=== PATIENT | male | born 1965 | race Two or more races ===

== ENCOUNTER → 2021-10-16 10:34 | Outpatient (BNVA) | payer MEDICARE, MEDICAID, SELFPAY | PROVIDERS: PCP Internal Medicine; Visit Provider Nurse Practitioner Family | DX: R56.9 Unspecified convulsions (principal); R51.9 Headache, unspecified; G47.9 Sleep disorder, unspecified | CPT/HCPCS: 99202 ==

== ENCOUNTER → 2022-05-12 12:59 | Outpatient (BNVA) | payer OTHER, SELFPAY | PROVIDERS: PCP Internal Medicine; Visit Provider Nurse Practitioner Family | DX: R56.9 Unspecified convulsions (principal); G47.9 Sleep disorder, unspecified; R06.83 Snoring; R53.83 Other fatigue; R51.9 Headache, unspecified; Z79.899 Other long term (current) drug therapy | CPT/HCPCS: 99212 ==

== ENCOUNTER 2023-02-06 08:34 | Outpatient (AMB) | payer OTHER, SELFPAY ==
--- NOTE | 2023-02-06 08:56 | A.OFFVIS_ITS ---
Intake Vital Signs 02/06/23 09:05 Weight 145 lb 5 oz BP 96/72 Blood Pressure Location Lt brachial Position Sitting Pulse 880 H Pulse Source Pulse Oximeter Pulse Oximetry (%) 96 Oxygen Delivery Method Room Air Intake Visit Reasons: follow up-Confirmed Intake Note: Patient present for seizure follow up visit. Patient reports he has not had any seizures and is feeling well. He D/C the Melatonin due to leg cramps Home Health Aide Caregiver Required: No Accompanied by: Self / Same As Patient Allergies Penicillins Allergy (Mild, Verified 02/06/23 09:08) Unknown Medication List - Last Reconciled 02/06/23 by MINA Fox albuterol sulfate 90 mcg/actuation (Ventolin HFA) inhalation albuterol sulfate 2.5 mg inhalation Q4H PRN aspirin 81 mg PO DAILY levetiracetam 1,000 mg PO BID 30 days magnesium oxide 400 mg PO BEDTIME 30 days omeprazole 20 mg PO DAILY oxycodone mg PO riboflavin (vitamin B2) 400 mg PO DAILY 90 days simvastatin 20 mg PO BEDTIME sucralfate 1 g PO ONCE tamsulosin 0.4 mg PO DAILY tiotropium bromide 2.5 mcg/actuation (Spiriva Respimat) 2 puffs inhalation DAILY trazodone 100 mg PO BEDTIME HPI HPI Comments History of Present Illness Details 57-yr-old male presents for f/u visit. Pt denies any significant interval medical changes. Denies any interval seizure activity. Compliant w/ Keppra bid. Pt stopped Melatonin- was causing leg cramps, which resolved upon stopping the melatonin. Sleeping ok w/ Trazodone 100mg qhs and by wearing ear plugs at night. He had been having LLE burning pain and muscle twitching/tremor at night. Denies weakness, usual tremor. His PCP started him on something, but does not recall what exactly, but it has been very helpful. [facility] Medical History COPD (chronic obstructive pulmonary disease) Depression History of cancer metastatic to brain History of Helicobacter pylori infection Hx of cancer of lung Hx of testicular cancer Hyperlipidemia Surgical History History of orchiectomy Hx of removal of cyst Hx of hernia repair Family History Mother Heart disease Father Acute alcohol abuse Social History Household Members: Spouse Alcohol intake: former Patient Tobacco Use Status: Former Tobacco user Substance Use Type: Crack/Cocaine Review of Systems Const All systems reviewed & are unremarkable except as noted in HPI and below Physical Exam Vital Signs: Last Vital Signs Pulse 880 H 02/06/23 09:05 BP 96/72 02/06/23 09:05 Pulse Ox 96 02/06/23 09:05 Oxygen Delivery Method Room Air 02/06/23 09:05 Const General: cooperative and no acute distress Orientation/consciousness: patient oriented x3 HEENT Head: Yes normocephalic Resp Effort & Inspection: normal respiratory effort and able to speak in complete sentences Neuro General: patient oriented x3, gait normal and CN's II-XI intact bilaterally Cognition (Neuro): normal cognition Motor exam (neuro): 5/5 motor strength present throughout Psych Appearance: grossly normal Mental Status: mental status grossly normal Speech and movement: Normal speech and movement present Affect: normal affect Attitude: cooperative Thought process: Normal thought process present Thought content: Normal thought content present Insight: Good insight present (Psych) Judgement: Good judgement present (Psych) Assessment & Plan Assessment & Plan (1) Seizure: Code(s): R56.9 - Unspecified convulsions (2) Sleep difficulties: Code(s): G47.9 - Sleep disorder, unspecified Plan For seizure: Continue Levetiracetam to 1,000mg bid. ? For headache: Monitor. ? For sleep: Stopped Melatonin- caused leg cramps. Continue Trazodone 100mg qhs. Pt declined HST- will monitor. ? f/u in 12 months or sooner prn. Medications: Refilled levetiracetam 1,000 mg PO BID 30 days 60 tabs 6RF Coding Level of Care Code Est Pt Level 4 (03487) Diagnoses Seizure R56.9 Sleep difficulties G47.9
[2023-02-06 09:05] VITALS: BP 96/72; PULSE 880; O2SAT 96
== END 2023-02-06 09:39 | disposition home or self-care (01) ==
PROVIDERS: PCP Internal Medicine; Visit Provider Nurse Practitioner Family
DX: R56.9 Unspecified convulsions (principal); G47.9 Sleep disorder, unspecified
CPT/HCPCS: 99214

== ENCOUNTER → 2023-02-06 08:34 | Outpatient (BNVA) | payer OTHER, SELFPAY | PROVIDERS: PCP Internal Medicine; Visit Provider Nurse Practitioner Family | DX: G47.9 Sleep disorder, unspecified (principal); R56.9 Unspecified convulsions | CPT/HCPCS: 99212 ==

== ENCOUNTER 2024-02-01 11:27 | Outpatient (AMB) | payer OTHER, SELFPAY ==
--- NOTE | 2024-02-01 11:31 | A.OFFVIS_ITS ---
Vital Signs 02/01/24 11:32 Height 5 ft 7 in Weight 149 lb BMI 23.3 Intake Visit Reasons: 1yr follow up Intake Note: Patient presents for follow up Allergies Penicillins Allergy (Mild, Verified 02/01/24 11:33) Unknown Medication List - Last Reconciled 02/01/24 by MINA Fox albuterol sulfate 90 mcg/actuation (Ventolin HFA) inhalation albuterol sulfate 2.5 mg inhalation Q4H PRN aspirin 81 mg PO DAILY levetiracetam 1,000 mg PO BID 30 days magnesium oxide 400 mg PO BEDTIME 30 days omeprazole 20 mg PO DAILY oxycodone mg PO riboflavin (vitamin B2) 400 mg PO DAILY simvastatin 20 mg PO BEDTIME sucralfate 1 g PO ONCE tamsulosin 0.4 mg PO DAILY tiotropium bromide 2.5 mcg/actuation (Spiriva Respimat) 2 puffs inhalation DAILY trazodone 100 mg PO BEDTIME HPI Comments Details: 58-yr-old male presents for f/u visit of seizure and would like to discuss his sleep issues. Pt denies any significant interval medical changes. Denies any interval seizure activity. He states he has not been taking his Keppra- thought it was stopped by his PCP. Reviewed recent PCP notes through [facility]- PCP did not d/c his Keppra. States rarely has a mild headache. Sleeping ok w/ Trazodone- now reduced to 50mg qhs and by wearing ear plugs at night. However, he is now having BLE calf restlessness, pain, shakiness which starts in when he lays down. May have BLE leg cramps. This starts at rest and makes it difficult to sleep. Walking helps. Denies weakness, usual tremor, low back pain. He was taking ropinirole- which helped but he is no longer taking it but is not sure why. Previous trials- Melatonin- was causing leg cramps, which resolved upon stopping the melatonin. [facility] Latest Ref Rng & Units 01/29/2023 09/03/2023 White Blood Cell Count 4.8 - 10.8 x10-3/uL 7.9 6.6 RBC 4.5 - 5.5 x10-6/uL 4.8 5.1 Hemoglobin 13.5 - 17.5 g/dL 14.6 15.3 Hematocrit 42 - 54 % 44.1 46.1 MCV 79 - 98 fL 92.5 90.4 MEAN CORPUSCULAR HEMOGLOBIN 27 - 32 pg 30.6 30.0 MCHC 32 - 37 g/dL 33.1 33.2 RED CELL DISTRIBUTION WIDTH 11 - 15 % 13.2 13.4 Platelet Count 130 - 400 x10-3/uL 197 189 MPV 7 - 11 fL 11.8(H) 11.2(H) NRBC % AUTO <1 % 0.0 0.0 NEUTROPHILS % 59.6 58.2 LYMPHOCYTES % 29.3 31.2 MONO % % 9.7 8.7 EOSINOPHILS % 0.5 0.8 BASO % % 0.6 0.8 IMMATURE GRANULOCYTES % % 0.3 0.3 NRBC # AUTO <0.1 x10-3/uL 0.00 0.00 NEUT # 1.5 - 7.0 x10-3/uL 4.72 3.87 LYMPH # 1 - 5.0 x10-3/uL 2.32 2.07 MONO # 0.2 - 1.0 x10-3/uL 0.77 0.58 EOS # 0 - 0.5 x10-3/uL 0.04 0.05 BASO # 0 - 0.2 x10-3/uL 0.05 0.05 IMMATURE GRANULOCYTES # 0 - 0.03 x10-3/uL 0.02 0.02 GLUCOSE, PLASMA 70 - 100 mg/dL 95 115(H) Blood Urea Nitrogen 5 - 25 mg/dL 16 16 creatinine 0.7 - 1.3 mg/dL 0.98 0.98 GLOMERULAR FILTRATION RATE >60 89 88 NA (WB) 135 - 145 mEq/L 140 141 K 3.5 - 5.5 mmol/L 4.0 4.0 Chloride 96 - 110 mmol/L 107 107 CARBON DIOXIDE 21 - 32 mmol/L 28 28 ANION GAP 3 - 11 5 6 CALCIUM 8.5 - 10.5 mg/dL 8.7 9.0 PROTEIN, TOTAL 6.0 - 8.0 G/dL 7.0 7.0 Albumin 3.2 - 5.0 G/dL 4.0 3.9 Bilirubin, total 0.0 - 1.4 mg/dL 0.4 0.5 AST (SGOT) 10 - 42 U/L 21 17 ALT (SGPT) 10 - 60 U/L 21 21 Alk Phos 42 - 121 U/L 68 71 Cholesterol 0 - 200 mg/dL 198 171 TRIGLYCERIDES 0 - 150 mg/dL 62 99 HDL >40 mg/dL 65 64 LDL 0 - 100 mg/dL 121(H) 88 TC-HDLC RATIO 0 - 4.4 mg/dL 3.1 2.7 TSH 0.40 - 4.00 uIU/ml 1.64 ? IRON BINDING CAPACITY 250 - 450 ug/dL ? 293 IRON, TOTAL 50 - 160 ug/dL ? 103 % FE SATURATION 20 - 50 % ? 35 MAGNESIUM 1.9 - 2.6 mg/dL 2.0 2.0 VITAMIN B12 250 - 900 pg/mL 1826(H) ? FERRITIN 26 - 388 ng/mL ? 64 INTRINSIC FACTOR ANTIBODY Negative ? Negative PFSH Medical History Hyperlipidemia Depression History of cancer metastatic to brain History of Helicobacter pylori infection COPD (chronic obstructive pulmonary disease) Hx of cancer of lung Hx of testicular cancer Surgical History History of orchiectomy Hx of removal of cyst Hx of hernia repair Family History Mother Heart disease Father Acute alcohol abuse Social History Household Members: Spouse Alcohol intake: former Patient Tobacco Use Status: Former Tobacco user Substance Use Type: Crack/Cocaine Physical Exam Vital Signs: BMI result Body Mass Index 23.3 Const General: cooperative and no acute distress Orientation/consciousness: patient oriented x3 HEENT Head: Yes normocephalic Resp Effort & Inspection: normal respiratory effort and able to speak in complete sentences Neuro General: patient oriented x3, gait normal and CN's II-XI intact bilaterally Cognition (Neuro): normal cognition Gait exam (Neuro): Normal gait present Motor exam (neuro): 5/5 motor strength present throughout Deep tendon reflexes (DTR's): Right patellar reflex intensity grade: 2+ and Left patellar reflex intensity grade: 2+ Psych Appearance: grossly normal Mental Status: mental status grossly normal Speech and movement: Normal speech and movement present Affect: normal affect Attitude: cooperative Thought process: Normal thought process present Assessment & Plan Assessment & Plan (1) Seizure: Code(s): R56.9 - Unspecified convulsions Category: Medical (2) Sleep difficulties: Code(s): G47.9 - Sleep disorder, unspecified Category: Medical Plan For seizure: Resume Levetiracetam 1,000mg bid. ? For sleep and RLS s/s: Advised to stop Trazodone 50mg qhs, as this may exacerbate restless leg symptoms. Trial Gabapentin 100-300 mg at bedtime. Start Ferrous sulfate 325mg w/ Vit C 500mg po 3 x's week (Mon-Wed-Fri) in hopes this optimizes ferritin level, as in RLS ferritin goal is > 75-100. Check labs for other common etiologies. Pt previousl declined HST- will monitor. ZPrevious trials- Melatonin- caused leg cramps. Ropinirole- helped- unclear why it was stopped. For headache: Monitor. ? Will follow-up upon review of above and patient to follow-up in clinic in 6 months or sooner prn. Orders: Orders Complete Blood Count Auto Diff Today E55.9 - Vitamin D deficiency, unspecified, F32.A - Depression, unspecified, R25.2 - Cramp and spasm, R53.83 - Other fatigue, R79.0 - Abnormal level of blood mineral Comprehensive Met. Panel Today E55.9 - Vitamin D deficiency, unspecified, F32.A - Depression, unspecified, R25.2 - Cramp and spasm, R53.83 - Other fatigue, R79.0 - Abnormal level of blood mineral Hemoglobin A1c Today E55.9 - Vitamin D deficiency, unspecified, F32.A - Depression, unspecified, R25.2 - Cramp and spasm, R53.83 - Other fatigue, R79.0 - Abnormal level of blood mineral Vitamin B6 Today E55.9 - Vitamin D deficiency, unspecified, F32.A - Depression, unspecified, R25.2 - Cramp and spasm, R53.83 - Other fatigue, R79.0 - Abnormal level of blood mineral Magnesium Today E55.9 - Vitamin D deficiency, unspecified, F32.A - Depression, unspecified, R25.2 - Cramp and spasm, R53.83 - Other fatigue, R79.0 - Abnormal level of blood mineral Creatine Kinase Total Today E55.9 - Vitamin D deficiency, unspecified, F32.A - Depression, unspecified, R25.2 - Cramp and spasm, R53.83 - Other fatigue, R79.0 - Abnormal level of blood mineral Vitamin D 25-OH (D2 and D3) Today E55.9 - Vitamin D deficiency, unspecified, F32.A - Depression, unspecified, R25.2 - Cramp and spasm, R53.83 - Other fatigue, R79.0 - Abnormal level of blood mineral Vitamin B12 and Folate Today E55.9 - Vitamin D deficiency, unspecified, F32.A - Depression, unspecified, R25.2 - Cramp and spasm, R53.83 - Other fatigue, R79.0 - Abnormal level of blood mineral Folate Today E55.9 - Vitamin D deficiency, unspecified, F32.A - Depression, unspecified, R25.2 - Cramp and spasm, R53.83 - Other fatigue, R79.0 - Abnormal level of blood mineral TSH reflex Free T4 Today E55.9 - Vitamin D deficiency, unspecified, F32.A - Depression, unspecified, R25.2 - Cramp and spasm, R53.83 - Other fatigue, R79.0 - Abnormal level of blood mineral Medications: New ferrous sulfate 325 mg orally 3 x's per week (Thu-Thu-Thu); take w/ vit C 28 d ays 12 tabs 3RF ascorbate calcium (vitamin C) 500 mg orally 3 x's per week (Thu-Thu-Thu); 28 days 12 tabs 3RF gabapentin 100 - 300 mg (1 - 3 x 100 mg) PO BEDTIME 30 days 90 caps 3RF Changed From trazodone 100 mg PO BEDTIME To trazodone 50 mg PO BEDTIME Refilled levetiracetam 1,000 mg PO BID 30 days 60 tabs 12RF R56.9 - Unspecified convulsions Scribe Plan - Not visible on output: Reviewed possible medication side effects, including but not limited to drowsiness, dizziness. Coding Level of Care Code Est Pt Level 4 (98591) Diagnoses Seizure R56.9 Sleep difficulties G47.9
[2024-02-01 11:32] VITALS: BMI 23.3
== END 2024-02-01 12:10 | disposition home or self-care (01) ==
PROVIDERS: PCP Internal Medicine; Visit Provider Nurse Practitioner Family
DX: R56.9 Unspecified convulsions (principal); G47.9 Sleep disorder, unspecified
CPT/HCPCS: 99214

== ENCOUNTER → 2024-02-01 11:27 | Outpatient (BNVA) | payer OTHER, SELFPAY | PROVIDERS: PCP Internal Medicine; Visit Provider Nurse Practitioner Family | DX: R56.9 Unspecified convulsions (principal); G47.9 Sleep disorder, unspecified; E55.9 Vitamin D deficiency, unspecified; F32.A Depression, unspecified; R25.2 Cramp and spasm; R53.83 Other fatigue; R79.0 Abnormal level of blood mineral | CPT/HCPCS: 99212 ==

== ENCOUNTER 2024-02-03 09:50 | Outpatient (REF) | payer OTHER, SELFPAY ==
[2024-02-03 13:07] LABS: MANUAL DIFF FLAG NO
[2024-02-03 13:10] LABS: Basophils Percent Auto 0.6 % (0-2); Eosinophils Percent Auto 0.5 % (0-4); Hematocrit 42.7 % (42.0-52.0); Imm Gran Abs Auto 0.02 X10*3/uL (0.00-0.03); Imm Gran Pct Auto 0.3 % (0.0-0.4); Lymphocytes Percent Auto 32.5 % (20-40); Mean Corpuscular HGB Conc 35.1 g/dl (31.0-36.0); Mean Corpuscular Hemoglobin 31.1 pg (27.0-33.0); Mean Corpuscular Volume 88.6 fL (80.0-98.0); Mean Platelet Volume 11.3 fL (9.4-12.4); Monocytes Absolute Auto 0.7 X10*3/uL (0.1-1.2); Monocytes Percent Auto 11.2 % (2-11); Neutrophils Absolute Auto 3.4 x10*3/uL (2.0-8.3); Neutrophils Percent Auto 54.9 % (45-73); Platelet Count 176 X10*3/uL (160-400); Red Blood Count 4.82 X10*6/uL (4.60-5.80); Red Cell Distribution Width 13.3 % (11.0-16.0); White Blood Count 6.3 X10*3/uL (4.8-10.8)
[2024-02-03 13:18] LABS: Estimated Average Glucose 117 mg/dL; Hemoglobin A1C 145.2559 umol/L; Hemoglobin A1c % 5.7 % (<6.0)
[2024-02-03 14:04] LABS: Alanine Aminotransferase 19 U/L (0-40); Albumin Level 4.2 g/dL (3.5-5.0); Alkaline Phosphatase 58 U/L (39-117); Anion Gap 12 (12-20); Aspartate Amino Transferase 22 U/L (5-37); Bilirubin Total 0.5 mg/dL (0.0-1.0); Blood Urea Nitrogen 17 mg/dL (9-16); Carbon Dioxide 28 mmol/L (22-29); Chloride 106 mmol/L (96-108); Estimated Glomerular Filt Rate > 60; Glucose Random 104 mg/dL (60-115); Magnesium 1.9 mg/dL (1.6-2.6); Potassium 3.8 mmol/L (3.3-5.1); Sodium 142 mmol/L (135-145); Total Protein 6.7 g/dL (6.5-8.0)
[2024-02-03 14:50] LABS: Folate 13.4 ng/mL (> or = 4.0); Vitamin B12 1456 pg/mL (200-900)
[2024-02-07 16:59] LABS: Vitamin D 25-OH, D2 <4 ng/mL; Vitamin D 25-OH, D3 22 ng/mL; Vitamin D 25-OH, Total 22 ng/mL (30-100)
== END 2024-02-03 09:51 | disposition home or self-care (01) ==
LOC: HO.HKASLDS 09:50
PROVIDERS: Visit Provider Nurse Practitioner Family
DX: R53.83 Other fatigue (principal); R25.2 Cramp and spasm; R79.0 Abnormal level of blood mineral; F32.A Depression, unspecified; E55.9 Vitamin D deficiency, unspecified
CPT/HCPCS: 36415; 80053; 82306; 82550; 82607; 82746; 83036; 83735; 84207; 84443; 85025

== ENCOUNTER 2024-08-23 11:24 | Outpatient (AMB) | payer OTHER, SELFPAY ==
[2024-08-23 11:29] VITALS: BP 100/60; PULSE 98; O2SAT 95; BMI 23.5
--- NOTE | 2024-08-23 11:29 | A.OFFVIS_ITS ---
Vital Signs 08/23/24 11:29 Height 5 ft 7 in Weight 150 lb BMI 23.5 BP 100/60 Blood Pressure Location Rt brachial Position Sitting Pulse 98 Pulse Source Pulse Oximeter Pulse Oximetry (%) 95 Oxygen Delivery Method Room Air Intake Visit Reasons: Follow Up 6mo Intake Note: Patient presents 6 month follow up for seizures/sleep Warp Preparer Required: No Accompanied by: Self / Same As Patient Allergies Penicillins Allergy (Mild, Verified 08/23/24 11:34) Unknown Medication List - Last Reconciled 08/23/24 by MINA Fox albuterol sulfate 90 mcg/actuation (Ventolin HFA) inhalation albuterol sulfate 2.5 mg inhalation Q4H PRN ascorbate calcium (vitamin C) 500 mg orally 3 x's per week (Thu-Thu-Thu); 28 days aspirin 81 mg PO DAILY atorvastatin 20 mg PO BEDTIME cholecalciferol (vitamin D3) 25 mcg PO DAILY 30 days ferrous sulfate 325 mg orally 3 x's per week (Thu-Thu-Thu); take w/ vit C 28 days gabapentin 100 - 300 mg (1 - 3 x 100 mg) PO BEDTIME 30 days levetiracetam 1,000 mg PO BID 30 days magnesium oxide 400 mg PO BEDTIME 30 days omeprazole 20 mg PO DAILY oxycodone mg PO riboflavin (vitamin B2) 400 mg PO DAILY simvastatin 20 mg PO BEDTIME sucralfate 1 g PO ONCE tamsulosin 0.4 mg PO DAILY trazodone 50 mg PO BEDTIME HPI Comments Details: 58-yr-old male presents for f/u visit of seizure and would like to discuss his sleep issues. Pt reports cardiology (Dr. [facility]) recently started him on Atorvastatin 20mg qhs for mild HLD.. He is also being f/b GI s/p colonoscopy showing tubular adenomas, requiring co lonoscopy bleed surveillance every 3 years. Denies any interval seizure activity. He has resumed his Keppra- however he would prefer to take it as 500mg in am and 100mg qhs- as he thinks it may contribute to BLE soreness and twitching. Denies recent strong headaches, just an occasional mild headache. He did start the vit D and ferrous sulfate supplement- she is tolerating well Pt recently stopped the Trazodone, as it was not helping. He states he is now trying to sleep without medication. However he did start Gabapentin 100mg daily at bedtime. He states he is now sleeping at least a few hours a night. Denies daytime naps. He states his restless leg symptoms are a bit better. Has not needed to get out of bed and walk. Though again he does have BLE soreness and twitching at rest. Denies weakness, usual tremor, low back pain. Previous sleep/RLS trials: Ropinirole- which helped but he is no longer taking it but is not sure why. Melatonin- was causing leg cramps, which resolved upon stopping the melatonin. [facility] Medical History (Updated 08/23/24 @ 12:07 by MINA Fox) Vitamin D deficiency Hyperlipidemia Depression History of cancer metastatic to brain History of Helicobacter pylori infection COPD (chronic obstructive pulmonary disease) Hx of cancer of lung Hx of testicular cancer Surgical History History of orchiectomy Hx of removal of cyst Hx of hernia repair Family History Mother Heart disease Father Acute alcohol abuse Social History Household Members: Spouse Alcohol intake: former Patient Tobacco Use Status: Former Tobacco user Substance Use Type: Crack/Cocaine Physical Exam Vital Signs: Last Vital Signs Pulse 98 08/23/24 11:29 BP 100/60 08/23/24 11:29 Pulse Ox 95 08/23/24 11:29 Oxygen Delivery Method Room Air 08/23/24 11:29 BMI result Body Mass Index 23.5 Const General: cooperative and no acute distress Orientation/consciousness: patient oriented x3 HEENT Head: Yes normocephalic Resp Effort & Inspection: normal respiratory effort and able to speak in complete sentences Neuro General: patient oriented x3, gait normal and CN's II-XI intact bilaterally Cognition (Neuro): normal cognition Gait exam (Neuro): Normal gait present Motor exam (neuro): 5/5 motor strength present throughout Deep tendon reflexes (DTR's): Right patellar reflex intensity grade: 2+ and Left patellar reflex intensity grade: 2+ Psych Appearance: grossly normal Mental Status: mental status grossly normal Speech and movement: Normal speech and movement present Affect: normal affect Attitude: cooperative Thought process: Normal thought process present Results Reviewed Results Reviewed: From [facility]ology notes, dated 08/16/2024 Component Date Value Ref Range Status ? Ventricular Rate ECG 08/16/2024 82 BPM Prelimina ry ? Atrial Rate 08/16/2024 82 BPM Preliminary ? P-R Interval 08/16/2024 158 ms Preliminary ? QRS Duration 08/16/2024 78 ms Preliminary ? Q-T Interval 08/16/2024 374 ms Preliminary0 ? QTc 08/16/2024 436 ms Preliminary ? P Wave [place] 08/16/2024 57 degrees Prelimin meng ? R [place] 08/16/2024 8 degrees Prelimina ry ? T [place] 08/16/2024 46 degrees Prelimin meng ? ECG Interpretation 08/16/2024 ? ? Preliminary Value:Normal sinus rhythmSeptal infarct (cited on or before 16-AUG-2024)Abnormal ECGWhen compared with ECG of 04-FEB-2021 11:38,Questionable change in initial forces of Septal leads? Hospital Outpatient Visit on 07/21/2024 Component Date Value Ref Range Status ? Final Diagnosis 07/21/2024 ? ? Final Value:A. Descending colon polyp: Tubular adenoma?B. Colon, cecum polyps x2: Tubular adenomata?C. Sigmoid colon polyp:Tubular adenomaMargin is uninvolved ? ? Gross Description 07/21/2024 ? ? Final Value:A. Large Intestine, Left/Descending Colon, polyp:Labeled descending colon polyp . Received in formalin is a 0.6 cm irregular gonzales mucosal tissue fragment which is wrapped in paper and submitted in toto in one cassette, one piece, multiple levels on one slide.B. Large Intestine, Cecum, polyp x2:Labeled colon cecum polyp x 2 . Received in formalin are four irregular gonzales mucosal tissue fragments, each measuring approximately 0.2 cm in greatest dimension, which are wrapped in paper and submitted in toto one cassette, four pieces, multiple levels on one slide.C. Large Intestine, Sigmoid Colon, polyp:Labeled Sig colon polyp . Received in formalin is a 0.6 cm gonzales- pink mucosal polyp. The resection margin is inked black. The polyp is bisected. Also received in same container is an additional 0.3 cm pink-red mucosal tissue fragment. The specimen is wrapped in paper and entirely submitted one cassette, three pieces, multiple levels on one slide.LEONA? ? Disclaimer 07/21/2024 ? ? Final Value:Unless otherwise specified, all tissue is 10% NB formalin fixed and paraffin embedded.? Appointment on 07/14/2024 Component Date Value Ref Range Status ? Sodium 07/14/2024 139 133 - 145 mmol/L Final ? Potassium 07/14/2024 4.5 3.5 - 5.5 mmol/L Final ? Chloride 07/14/2024 108 96 - 110 mmol/L Final ? CO2 07/14/2024 25 21 - 32 mmol/L F inal ? Anion Gap 07/14/2024 6 3 - 11 Final ? Glucose 07/14/2024 90 70 - 100 mg/dL F inal ? BUN 07/14/2024 14 5 - 25 mg/dL Fin al ? Creatinine 07/14/2024 0.82 0.70 - 1.30 mg/d L Final ? eGFR 07/14/2024 100 >=60 mL/min/1.7 3m2 Final ? Calculation based on the?Chronic Kidney Disease Epidemiology Collaboration (CKD-EPI) equation refit?without adjustment for race. ? BUN/Creatinine Ratio 07/14/2024 17.1 ? Final ? Calcium 07/14/2024 9.1 8.5 - 10.5 mg/dL Final ? AST (SGOT) 07/14/2024 18 10 - 42 unit/L F inal ? ALT (SGPT) 07/14/2024 24 10 - 60 unit/L F inal ? Alkaline Phosphatase 07/14/2024 68 42 - 121 unit/L Final ? Total Protein 07/14/2024 7.2 6.0 - 8.0 g/dL F inal ? Albumin 07/14/2024 3.8 3.2 - 5.0 g/dL F inal ? Total Bilirubin 07/14/2024 0.4 0.0 - 1.4 mg/d L Final ? Cholesterol 07/14/2024 196 0 - 200 mg/dL Fi nal ? Triglycerides 07/14/2024 67 0 - 150 mg/dL Fi nal ? HDL 07/14/2024 73 >=40 mg/dL Final ? LDL Calculated 07/14/2024 110 (H) 0 - 100 mg/dL F inal ? VLDL Cholesterol Perfecto 07/14/2024 13.4 mg/dL Final ? Non HDL Chol. (LDL+VLDL) 07/14/2024 123 <145 mg/ dL Final ? Chol/HDL Ratio 07/14/2024 2.7 0.0 - 4.4 Final ? WBC 07/14/2024 7.7 4.8 - 10.8 K/mcL Final ? RBC 07/14/2024 4.80 4.50 - 5.50 M/mc L Final ? Hemoglobin 07/14/2024 14.6 13.5 - 17.5 g/dL Final ? Hematocrit 07/14/2024 44.2 42.0 - 54.0 % Fi nal ? MCV 07/14/2024 92.7 79.0 - 98.0 FL F inal ? MCH 07/14/2024 30.6 27.0 - 32.0 pcg Final ? MCHC 07/14/2024 33.0 32.0 - 37.0 g/dL Final ? RDW 07/14/2024 13.5 11.0 - 15.0 % Fi nal ? Platelets 07/14/2024 183 130 - 400 K/mcL Final ? MPV 07/14/2024 10.5 7.0 - 11.0 FL Fi nal ? NRBC 07/14/2024 0.0 <1.0 % Final ? NRBC Absolute 07/14/2024 0.00 <0.10 K/mcL Fi nal ? TSH 07/14/2024 1.31 0.40 - 4.00 mcIU /mL Final ? Hemoglobin A1C 07/14/2024 5.9 <6.5 % Final ? Mean Bld Glu Estim. 07/14/2024 123 mg/dL Final Assessment & Plan Assessment & Plan (1) Seizure: Code(s): R56.9 - Unspecified convulsions Category: Medical (2) Low serum ferritin level: Code(s): R79.0 - Abnormal level of blood mineral Category: Medical (3) Vitamin D deficiency: Code(s): E55.9 - Vitamin D deficiency, unspecified Category: Medical (4) Sleep difficulties: Code(s): G47.9 - Sleep disorder, unspecified Category: Medical Plan For seizure: Hold Levetiracetam 1,000mg bid. We will request levetiracetam ER 500 mg tab- 4 tabs daily at bedtime (alternatively he may trial 1 tab in a.m. and 3 tabs at bedtime) ? For fatigue, sleep and RLS s/s: Recheck serum iron studies, ferritin, magnesium, vitamin-D- lab slips given to patient- he may do these with his next scheduled lab orders. For now: * Continue vitamin-D supplement * Continue Gabapentin 100-300 mg at bedtime. * Continue Ferrous sulfate 325mg w/ Vit C 500mg po 3 x's week (Mon-Wed-Thu) in hopes this optimizes ferritin level, as in RLS ferritin goal is > 75-100. Pt previously declined HST- will monitor. Previous trials- Melatonin- caused leg cramps. Ropinirole- helped- unclear why it was stopped. For headache: Continue riboflavin 400 mg daily in morning. Continue magnesium 400 mg daily at bedtime ? Will follow-up upon review of above and patient to follow-up in clinic in 6 months or sooner prn. Orders: Orders Ferritin Today E55.9 - Vitamin D deficiency, unspecified, R25.2 - Cramp and spasm, R79.0 - Abnormal level of blood mineral IRON PROFILE Today D64.9 - Anemia, unspecified, E55.9 - Vitamin D deficiency, unspecified, R25.2 - Cramp and spasm, R79.0 - Abnormal level of blood mineral Vitamin D 25-OH (D2 and D3) Today E55.9 - Vitamin D deficiency, unspecified, R25.2 - Cramp and spasm, R79.0 - Abnormal level of blood mineral Magnesium Today E55.9 - Vitamin D deficiency, unspecified, R25.2 - Cramp and spasm, R79.0 - Abnormal level of blood mineral Medications: New levetiracetam ER 2,000 mg (4 x 500 mg) PO Q24H 30 days 120 tabs 6RF Changed From riboflavin (vitamin B2) 400 mg PO DAILY 90 tabs 6RF To riboflavin (vitamin B2) 400 mg PO DAILY 90 days 90 tabs 3RF From magnesium oxide may hold for loose stools 400 mg PO BEDTIME 30 days 30 tabs 6RF To magnesium oxide may hold for loose stools 400 mg PO BEDTIME 90 days 90 tabs 3RF Refilled gabapentin 100 - 300 mg (1 - 3 x 100 mg) PO BEDTIME 30 days 90 caps 6RF ascorbate calcium (vitamin C) 500 mg orally 3 x's per week (Thu-Thu-Thu); 28 days 12 tabs 3RF ferrous sulfate 325 mg orally 3 x's per week (Thu-Thu-Thu); take w/ vit C 28 days 12 tabs 3RF cholecalciferol (vitamin D3) 25 mcg PO DAILY 30 days 30 caps 6RF E55.9 - Vitamin D deficiency, unspecified Discontinued levetiracetam Discontinued Reason: Doctor's Order 1,000 mg PO BID 30 days 60 tabs 12RF R56.9 - Unspecified convulsions Coding Level of Care Code Est Pt Level 4 (66260) Diagnoses Seizure R56.9 Low serum ferritin level R79.0 Vitamin D deficiency E55.9 Sleep difficulties G47.9
--- OUTSIDE RECORDS SUMMARY | 2024-08-23 12:54 | XMS_ITS | Clinical Summary ---
Author Organization [facility] Address [address] [place] [address] Care Team Providers Care Ross Lift Operator Name Role Phone Janet Chaudhry MD Primary Care Provider [phone] Allergies Active Allergy Reactions Criticality Noted Date Comments Penicillins 09/18/2016 Medications Medication Sig Dispensed Refills Start Date End Date Status omeprazole (PRILOSEC) 20 MG capsule Take 1 capsule (20 mg total) by mouth as needed. 0 Active SPIRIVA RESPIMAT 2.5 MCG/ACT AERS INHALE 2 PUFFS PO QD AT THE SAME TIME EACH DAY 3 08/26/2017 Active INCRUSE ELLIPTA 62.5 MCG/INH AEPB INL 1 PUFF PO QD 3 06/17/2017 A ctive albuterol (PROVENTIL) (2.5 MG/3ML) 0.083% nebulizer solution INL 3 ML BY NEBULIZATION ROUTE TID 3 11/28/2017 Active ASPIRIN LOW DOSE 81 MG EC tablet TK 1 T PO D 3 11/24/2017 Active albuterol (PROVENTIL HFA;VENTOLIN HFA) 108 (90 Base) MCG/ACT inhaler Inhale 2 puffs into the lungs every 4 (four) hours as needed for wheezing. 0 Active atorvastatin (LIPITOR) tablet 20 mg Take 1 tablet (20 mg total) by mouth daily. 0 Active methylPREDNISolone (MEDROL) 4 MG tablet Take 1 tablet (4 mg total) by mouth daily. 0 Active traZODone (DESYREL) 50 MG tablet TAKE 1 TABLET(50 MG) BY MOUTH EVERY NIGHT AT BEDTIME 90 tablet 3 12/15/2023 Active oxyCODONE (ROXICODONE) 5 MG immediate release tabletIndications: Malignant neoplasm of upper lobe of right lung (HCC) Take 1 tablet (5 mg total) by mouth every 8 (eight) hours as needed for pain. 24 tablet 0 01/12/2024 Active Active Problems Problem Noted Date Diagnosed Date Malignant neoplasm of upper lobe of right lung 0 10/04/2016 Brain metastases 10/04/2016 Personal history of gastric ulcer 10/04/2016 Chronic bronchitis 06/06/2015 Hx of testicular cancer 06/05/2015 Overview: Overview: Diagnosis 01/1997 - Under went Right orchiectomy without chemotherapy or radiation Family History Medical History Relation Name Comments Alcohol abuse Father Heart attack Mother Relation Name Status Comments Father Mother Sister Social History Tobacco Use Types Packs/Day Years Used Date Smoking Tobacco: Former Cigarettes 2 Q uit: 12/12/2014 Smokeless Tobacco: Never Alcohol Use Standard Drinks/Week Comments No 0 (1 standard drink = 0.6 oz pur e alcohol) Sex and Gender Information Value Date Recorded Sex Assigned at Not on file Gender Identity Not on file Sexual Orientation Not on file Job Start Date Occupation Industry Not on file Not on file Not on file Last Filed Vital Signs Vital Sign Reading Time Taken Comments Blood Pressure 100/62 01/13/2024 11:20 AM EDT Pulse 81 01/13/2024 11:20 AM EDT Temperature 37.1 ??C (98.7 ??F) 01/13/2024 11:20 AM E DT Respiratory Rate - - Oxygen Saturation 100% 01/13/2024 11:20 AM EDT Inhaled Oxygen Concentration - - Weight 67.1 kg (148 lb) 01/13/2024 11:20 AM EDT Height 170.2 cm (5' 7 ) 06/23/2023 11:06 AM EDT Body Mass Index 23.18 06/23/2023 11:06 AM EDT Plan of Treatment Health Maintenance Due Date Last Done Comments Hepatitis C Screening 1965 Depression Screening 1975 Preventative Health Evaluation 1981 DTap / Tdap / Td (1 - Tdap) 1982 Colon Cancer Screening (Colonoscopy) 02/10/2008 Pneumococcal Vaccine (2 of 2 - PCV) 12/28/2018 12/28/2017 COVID-19 Vaccine (3 - Pfizer risk series) 09/22/2020 08/25/2020, 08/04/2020 Influenza Vaccine (#1) 2023 0, 12/02/2018, 12/25/2017, Additional history exists RSV Adult > 60+ Yrs or (1 - 1-dose 75+ series) 2038 Shingrix-Zoster Vaccine Completed 05/16/2019, 12/28 Hepatitis B Vaccines Aged Out No long er eligible based on patient's age to complete this topic RSV Ped < 20 months Aged Out No longe r eligible based on patient's age to complete this topic Care Teams Ross Lift Operator Relationship Specialty Start Date End Date Janet Chaudhry MD [address] [facility] [address] [place] [address] PCP - General Internal Medicine 05/12/16
== END 2024-08-23 12:13 | disposition home or self-care (01) ==
LOC: HO.HSMS 11:24
PROVIDERS: PCP Internal Medicine; Visit Provider Nurse Practitioner Family
DX: R56.9 Unspecified convulsions (principal); R79.0 Abnormal level of blood mineral; E55.9 Vitamin D deficiency, unspecified; G47.9 Sleep disorder, unspecified
CPT/HCPCS: 99214

== ENCOUNTER → 2024-08-23 11:24 | Outpatient (BNVA) | payer OTHER, SELFPAY | PROVIDERS: PCP Internal Medicine; Visit Provider Nurse Practitioner Family | DX: R56.9 Unspecified convulsions (principal); R79.0 Abnormal level of blood mineral; E55.9 Vitamin D deficiency, unspecified; G47.9 Sleep disorder, unspecified | CPT/HCPCS: 99212 ==

== ENCOUNTER 2024-08-24 09:50 | Outpatient (REF) | payer OTHER, SELFPAY ==
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
--- OUTSIDE RECORDS SUMMARY | 2024-08-24 10:34 | XMS_ITS | Clinical Summary ---
Author Organization [facility] Address [address] [place] [address] Care Team Providers Care Mult Au Matic Operator Name Role Phone Janet Chaudhry MD Primary Care Provider [phone] Allergies Active Allergy Reactions Criticality Noted Date [...] age to complete this topic Care Teams Mult Au Matic Operator Relationship Specialty Start Date End Date Janet Chaudhry MD 175 [facility] [address] [place] [address] PCP - General Internal Medicine 05/12/16
--- OUTSIDE RECORDS SUMMARY | 2024-08-24 10:34 | XMS_ITS | Clinical Summary ---
Author Organization [facility] Address [address] [place] [address] Phone Care Team Providers Care Trench Pipe Layer Name Role Phone Janet Chaudhry MD Primary Care Provider [phone] Allergies Active Allergy Reactions Criticality Noted Date Comments Penicillins 05/18/2015 Medications cyanocobalami n (VITAMIN B-12) 1,000 mcg tablet Take 1 tablet (1,000 mcg total) by mouth 1 (one) time each day. 02/11/20 24 Active levETIRAcetam XR (KEPPRA XR) 500 mg 24 hr tablet 02/09/20 24 Active traZODone (DESYREL) 50 mg tablet TAKE 1 TABLET BY MOUTH AT BEDTIME 12/16/19 24 Active albuterol 2.5 mg /3 mL (0.083 %) nebulizer solution Take 1 Vial by nebulization every 4 hours as needed for Wheezing for up to 180 days. 05/29/19 21 Active sucralfate (CARAFATE) 1 gram tablet Take 1 g by mouth 2 times daily. Active NEBULIZERS MISC 1 Units by Does not apply route every 4 hours as needed. Active ondansetron (ZOFRAN) 4 mg tablet Take 1 Tab by mouth every 8 hours as needed for Nausea. 11/24/19 20 Active albuterol HFA (Ventolin HFA) 90 mcg/actuation inhaler 09/25/19 19 Active FeroSuL 325 mg (65 mg iron) tablet TAKE 1 TABLET BY MOUTH THREE TIMES A WEEK (MON-WED-FRI); TAKE WITH VITAMIN C TABLET. 12 tablet 3 05/25/19 25 Active polyethylene glycol (Golytely) 236-22.74-6.7 4 -5.86 gram solution Take 4L by mouth once for one dose. May substitue any PEG. Starting at 6PM the night before your procedure drink 1 8oz glasses at your own pace until you complete half of the gallon. Finish 2nd half of the gallon 5 hours before your procedure. 4000 mL 07/08/19 25 Active Additional Information Patient not taking.Reported on 08/16/2024 bisacodyL (DULCOLAX) 5 mg EC tablet Take 2 tablets by mouth right before beginning bowel prep. See instructions provided by the office 2 tablet 07/08/19 25 Active Additional Information Patient not taking.Reported on 08/16/2024 umeclidinium (INCRUSE ELLIPTA) 62.5 mcg/actuation inhalation INL 1 PUFF PO QD 06/18/19 18 Active rOPINIRole (REQUIP) 0.5 mg tablet 10/29/19 24 Active riboflavin (VITAMIN B2) 400 mg tablet 04/05/20 24 Active methylPREDNIS olone (MEDROL) 4 mg tablet Take 1 tablet (4 mg total) by mouth. Active LORazepam (ATIVAN) 0.5 mg tablet Take 1 tablet (0.5 mg total) by mouth. Active docusate sodium (COLACE) 100 mg capsule Take 1 capsule (100 mg total) by mouth. 11/18/19 19 Active Vitamin D3 25 mcg (1,000 unit) capsule 06/22/19 25 Active Vitamin C 500 mg tablet 06/14/19 25 Active acetaminophen (TYLENOL) 500 mg tablet Take 1 tablet (500 mg total) by mouth. 11/18/19 19 Active metoprolol succinate (TOPROL-XL) 25 mg 24 hr tablet Take 0.5 tablets (12.5 mg total) by mouth 1 (one) time each day. 45 tablet 2 07/15/19 25 Active gabapentin (NEURONTIN) 100 mg capsule TAKE 1 CAPSULE BY MOUTH THREE TIMES DAILY 90 capsule 1 07/15/19 25 Active simvastatin (ZOCOR) 20 mg tablet Take 1 tablet (20 mg total) by mouth at bedtime. 90 tablet 3 07/20/19 25 Active aspirin 81 mg EC tablet TAKE 1 TABLET BY MOUTH EVERY DAY 90 tablet 07/21/19 25 Active oxyCODONE (ROXICODONE) 5 mg immediate release tablet Take 1 tablet (5 mg total) by mouth every 8 (eight) hours if needed for severe pain. Max Daily Amount: 15 mg 24 tablet 07/23/19 25 Active omeprazole (PriLOSEC) [address] capsule TAKE 1 CAPSULE BY MOUTH EVERY DAY 90 capsule 1 07/28/19 25 Active Additional Information Patient not taking.Reported on 08/16/2024 atorvastatin (LIPITOR) 20 mg tablet Take 1 tablet (20 mg total) by mouth at bedtime. 90 each 3 08/17/19 25 026 Active omeprazole (PriLOSEC) [address] capsule Take 1 capsule (20 mg total) by mouth 1 (one) time each day. 09/02/19 24 025 Discontinued atorvastatin (LIPITOR) 20 mg tablet Take 1 tablet (20 mg total) by mouth 1 (one) time each day. 025 Discontinued(R eorder) Active Problems Problem Noted Date Diagnosed Date Chest wall pain 06/25/2023 Overview (03/28/2024): Last Assessment & Plan: The patient has chest wall pain that is tender to palpation in the exact region where he states he feels a pop while doing push-ups. He was advised to follow-up with his PCP regarding this. Given that he does not have any chest pain with exertion, this does not appear to be cardiac in nature; he was given reassurance regarding this. HIRAM (obstructive sleep apnea) 06/25/2023 Overview (03/28/2024): Last Assessment & Plan: The patient does appear to have a history of untreated HIRAM; we had an in-depth discussion regarding potential negative implications of this for his health, particularly for his cardiac health. Given that he is having some palpitations there is also concern for paroxysmal atrial fibrillation which we discussed as well. 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 Palpitations 06/25/2023 Overview (03/28/2024): Last Assessment & Plan: We will evaluate this further with 48-hour Holter monitor and readdress as needed. EKG today shows no ectopy; heart rate is well-controlled. Restless legs 01/30/2023 Chronic systolic congestive heart failure ([facility] V24, [facility] V28) 01/29/2023 Cardiomyopathy ([facility] V24, [facility] V28) 2021 Overview (03/28/2024): Last Assessment & Plan: Patient offers no ischemic or heart failure symptoms today; he appears euvolemic on exam. His last echocardiogram was completed in 2021 revealing an EF in the range of 40 to 45% which is typically been unchanged over the last several years. We will update this today and readdress as needed. Continue goal-directed medical therapies for heart failure including metoprolol; he does have a history of low systolic blood pressures and may not tolerate additional medications that would lower his blood pressure. Plan would be to initiate Farxiga or Jardiance if indicated. I've asked the patient to call if they develop worsening symptoms of heart failure such as increased shortness of breath, new or worsening cough, increased swelling in the legs or ankles, or weight gain of more than 2 pounds in one day or 4 pounds in one week. Tachycardia 11/04/2021 Seizure ([facility] V24, [facility] V28) 02/23/2021 Mixed hyperlipidemia 05/22/2020 Overview (03/28/2024): Last Assessment & Plan: The patient's most recent lipid panel reveals an LDL of 121 on 01/29/2023. Goal LDL for this patient would be less than 100 given he has no history significant for coronary artery disease no diabetes. Continue statin; lipid panel typically monitored by PCP. I have reviewed with the patient the importance of a heart healthy lifestyle which includes eating a low-fat low-salt diet, getting regular exercise, maintaining a healthy weight, not smoking, and following up with routine medical care. Pulmonary emphysema ([facility] V24, [facility] V28) 0 05/22/2020 Overview (03/28/2024): Last Assessment & Plan: No significant shortness of breath at rest or with exertion though he does have faint end expiratory wheezes; he does admit that these are worse at times. He will continue to follow-up with pulmonology as recommended. Vitamin D deficiency 11/20/2017 Chronic obstructive pulmonar y disease (COPD) ([facility] V24, [facility] V28) 11/11/2017 Insomnia 11/05/2017 Ejection fraction < 50% 08/21/2017 Overview (03/28/2024): Last Assessment & Plan: Appears euvolemic, has no ischemic or heart failure symptoms. I will update an echocardiogram. Internal and external prolapsed hemorrhoids 11/2017 Depression 04/14/2017 Colon polyps 03/27/2017 Atrophic gastritis 06/26/2016 Erosive esophagitis 06/26/2016 Anxiety about health 06/06/2015 Marijuana use 06/06/2015 Encounters Date Type Department Care Team Description 08/16/2024 10:50 AM EDT Office Visit [facility] [address] [place] [address] Jr Marques MD Cardiomyopathy, unspecified type ([facility] V24, [facility] V28) (Primary Dx); Chronic obstructive pulmonary disease, unspecified COPD type ([facility] V24, [facility] V28); Tachycardia 07/25/2024 Telephone Gastroenterology - [address] [phone] Greg Bagley, [place] 07/25/2024 Telephone Gastroenterology - [address] [phone] Greg Chio [place] Results 07/21/2024 10:44 AM EDT Anesthesia Event [facility] Endoscopy [address] [place] [address] Philip Rojas DO 07/21/2024 10:18 AM EDT - 07/21/2024 11:59 PM EDT Hospital Encounter [facility] Endoscopy [address] [place] [address] Pradeep Somers MD Claudio, Raymund, CRNA Tubular adenoma Discharge Disposition: Home or Self Care 07/19/2024 Telephone Internal Medicine - [place] [address] [facility] [address] [place] [address] Janet Chaudhry MD 07/14/2024 9:45 AM EDT Office Visit Internal Medicine [facility] 175 [facility] [address] [place] [address] Janet Chaudhry MD Mixed hyperlipidemia (Primary Dx); Seizure ([facility] V24, [facility] V28); Vitamin D deficiency; Hyperglycemia; Chronic obstructive pulmonary disease, unspecified COPD type ([facility] V24, [facility] V28); Chronic systolic congestive heart failure ([facility] V24, [facility] V28) 07/01/2024 Telephone Internal Medicine [facility] [address] [facility] [address] [place] [address] Janet Chaudhry MD Hypotension from Last 3 Months Immunizations Name Administration Dates Next Due Zoster recombinant (Shingrix) 19yo and older 06/2019 Surgical History Surgery Date Site/Laterality Comments OTHER SURGICAL HISTORY Right PROCEDURE: HISTORY OTHER; COMMENT: orchiectomy OTHER SURGICAL HISTORY PROCEDURE: HISTORY OTHER; COMMENT: right craniotomy for tumor resection HERNIA REPAIR 11/17/2018 Left PROCEDURE: LAPAROSCOPY, INGUINAL HERNIA REPAIR; COMMENT: Dr. Callahan BRAIN SURGERY PROCEDURE:BRAIN SURGERY COLONOSCOPY PROCEDURE:COLONOSCOPY Medical History Medical History Date Comments Anxiety about health 06/06/2015 DX:Anxiety about health Atrophic gastritis 06/26/2016 DX:Atrophic g astritis Chronic obstructive pulmonar y disease (COPD) ([facility] V24, [facility] V28) 11/11/2017 DX:Chronic obstructi ve pulmonary disease (COPD) ([facility]) Colon polyps 03/27/2017 DX:Colon polyps Depression 04/14/2017 DX:Depression Ejection fraction < 50% 08/21/2017 DX:Eject ion fraction < 50% Erosive esophagitis 06/26/2016 DX:Erosive e sophagitis Former cigarette smoker 06/06/2015 DX:Forme r cigarette smoker; COMMENT: Overview: Quit 04/2015 History of cancer metastatic to brain 09/09/2016 DX:History of cancer metastatic to brain; COMMENT: R craniotomy for tumor resection , s/p Chemo and RT History of Helicobacter pylo ri infection 08/30/2015 DX:History of Helicobacter p ylori infection History of lung cancer 06/06/2015 DX:Histor y of lung cancer; COMMENT: Small cell carcinoma dx 05/2012, s/p chemo and RT, Dr Rivas Hx of testicular cancer 06/05/2015 DX:Hx of testicular cancer; COMMENT: Overview: Diagnosis 01/1997 - Under went Right orchiectomy without chemotherapy or radiation Insomnia 11/05/2017 DX:Insomnia Internal and external prolap sed hemorrhoids 05/21/2017 DX:Internal and external pro lapsed hemorrhoids Marijuana use 06/06/2015 DX:Marijuana use Vitamin D deficiency 11/20/2017 DX:Vitamin D deficiency Lung cancer ([facility] V24, [facility] V28) DX:Lung cancer (HCC) Brain cancer ([facility] V24, [facility] V28) DX:Brain cancer (HCC) Hypertension DX:Hypertension CHF (congestive heart failur e) ([facility] V24, [facility] V28) DX:CHF (congestive heart fa ilure) (HCC) Brain metastases 10/04/2016 DX:Brain metast ases Chronic obstructive pulmonar y disease (COPD) ([facility] V24, [facility] V28) 11/11/2017 Seizure ([facility] V24, [facility] V28) 02/23/2021 Family History Medical History Relation Name Comments Alcohol abuse Father CABG Mother Heart attack Mother Relation Name Status Comments Father Mother Sister Social History Tobacco Use Types Packs/Day Years Used Date Smoking Tobacco: Former Cigarettes Q uit: 12/12/2014 Smokeless Tobacco: Never Tobacco Cessation:Counseling Given: Not Answered Alcohol Use Standard Drinks/Week Comments No 0 (1 standard drink = 0.6 oz pur e alcohol) Interpersonal Safety Answer Date Record ed Physical Abuse 07/21/2024 Verbal Abuse 07/21/2024 Sex and Gender Information Value Date Recorded Sex Assigned at Not on file Legal Sex Male 11:47 PM EST Gender Identity Not on file Sexual Orientation Not on file Obstetrics History Last Filed Vital Signs Vital Sign Reading Time Taken Comments Blood Pressure 115/60 08/16/2024 10:36 AM EDT Pulse 82 08/16/2024 10:36 AM EDT Temperature 36.7 ??C (98 ??F) 07/21/2024 10:43 AM EDT Respiratory Rate 20 07/21/2024 11:27 AM EDT Oxygen Saturation 98% 08/16/2024 10:36 AM EDT Inhaled Oxygen Concentration - - Weight 67.1 kg (148 lb) 08/16/2024 10:36 AM EDT Height 170.2 cm (5' 7 ) 08/16/2024 10:36 AM EDT Body Mass Index 23.18 08/16/2024 10:36 AM EDT Plan of Treatment Upcoming Encounters Date Type Department Care Team (Late st Contact Info) Description 09/14/2024 11:15 AM EDT Office Visit [facility] Hematology Oncology [address] [place] [phone] Katelyn Flynn MD [address] [place] [address] 11/17/2024 9:30 AM EDT Ancillary Procedure [facility] [address] [facility] [address] [place] [phone] 11/24/2024 11:30 AM EDT Office Visit Internal Medicine - [place] [address] [facility] [address] [place] [phone] Janet Chaudhry MD [address] [phone] 03/13/2025 8:40 AM EST Office Visit [facility] [address] [facility] [address] [place] [phone] Lbua Duenas NP [address] [facility] [address] [place] [address] Health Maintenance Due Date Last Done Comments Depression Screening 03/20/2022 HIV Screening 03/20/2022 Hepatitis C Screening 03/20/2022 Lung Cancer Screening (Low Dose CT) 03/20/2022 Social Influencers of Health Screening 03/20/2022 Medicare Annual Wellness Visit 01/30/2024 01/29/2023 COVID-19 Vaccine (8 - Pfizer risk season) 2024 12/16/2023, 01/07/2023, 12/26/2021, Additional history exists Hypertension/CHF/CAD Annual BMP Blood Test 07/14/2025 07/14/2024, 09/03/2023, 09/03/2023 Cholesterol Screening (Lipid Panel) 07/14/2029 07/14/2024, 09/03/2023, 09/03/2023 DTaP,Tdap,and Td Vaccines (2 - Td or Tdap) 08/03/2033 08/04/2023 Colorectal Cancer Screening: Colonoscopy 07/21/2034 07/21/2024 Zoster Vaccines Completed 05/16/2019, 12/28/2017 Pneumococcal Vaccine: 50+ Years Completed 01/10/2022, 12/28/2017 Pneumococcal Vaccine: Pediatrics (0 to 5 Years) and At-Risk Patients (6 to 64 Years) Completed 01/10/2022, 12/28/2017 RSV Immunization Adult Patients Completed 04/16/2023 MMR Vaccines Aged Out 08/04/2023 No longer eligi ble based on patient's age to complete this topic Influenza Vaccine Completed 12/04/2023, , 01/10/2022, Additional history exists HIB Vaccines Aged Out No longer eligi ble based on patient's age to complete this topic HPV Vaccines Aged Out No longer eligi ble based on patient's age to complete this topic Hepatitis A Vaccines Aged Out No long er eligible based on patient's age to complete this topic Hepatitis B Vaccines Aged Out No long er eligible based on patient's age to complete this topic IPV Vaccines Aged Out No longer eligi ble based on patient's age to complete this topic Meningococcal ACWY Vaccine Aged Out N o longer eligible based on patient's age to complete this topic Meningococcal B Vaccine Aged Out No l onger eligible based on patient's age to complete this topic RSV Immunization Patients Under 20 months Aged Out No longer eligible based on patient's age to complete this topic Varicella Vaccines Aged Out No longer eligible based on patient's age to complete this topic Procedures Procedure Name Priority Date/Time Associated Diagnosis Comments ECG 12-LEAD Routine 08/16/2024 10:42 AM EDT Cardiomyopathy, unspecified type ([facility] V24, [facility] V28) COLONOSCOPY Routine 07/21/2024 11:06 AM EDT Tubular adenoma TISSUE EXAM Routine 07/21/2024 10:53 AM EDT Tubular adenoma HEMOGLOBIN A1C Routine 07/14/2024 11:13 AM EDT Hyperglycemia THYROID STIMULATING HORMONE Routine 07/14/2024 11:13 AM EDT Mixed hyperlipidemia Seizure (CMS/HCC V24, CMS/HCC V28) Vitamin D deficiency COMPLETE BLOOD COUNT Routine 07/14/2024 11:13 AM EDT Mixed hyperlipidemia Seizure (CMS/HCC V24, CMS/HCC V28) Vitamin D deficiency LIPID PANEL WITH REFLEX TO DIRECT LDL Routine 07/14/2024 11:13 AM EDT Mixed hyperlipidemia Seizure (CMS/HCC V24, CMS/HCC V28) Vitamin D deficiency COMPREHENSIVE METABOLIC PANEL Routine 07/14/2024 11:13 AM EDT Mixed hyperlipidemia Seizure (CMS/HCC V24, CMS/HCC V28) Vitamin D deficiency from Last 3 Months Results * ECG 12 lead (08/16/2024 10:42 AM EDT) Ventricular Rate ECG 82 BPM GEMUSE Atrial Rate 82 BPM GEMUSE P-R Interval 158 ms GEMUSE QRS Duration 78 ms GEMUSE Q-T Interval 374 ms GEMUSE QTc 436 ms GEMUSE P Wave [place] 57 degrees GEMUSE R [place] 8 degrees GEMUSE T [place] 46 degrees GEMUSE ECG Interpretation Normal sinus rhythm Septal infarct (cited on or before 16-AUG-2024 ) Abnormal ECG When compared with ECG of 04-FEB-2021 11:38, Questionabl e change in initial forces of Septal leads Confirmed by Jacob MARQUES, JR ([id number]) on 08/16/2024 11:22:48 AM GEMUSE 08/16/2024 10:4 2 AM EDT 08/16/2024 11:22 AM EDT us Jr Marques MD ECG ORDERABLES Final Result GEMUSE * COLONOSCOPY Anesthesia - MAC; [facility] ENDOSCOPY (07/21/2024 11:06 AM EDT) Anatomical Region Laterality Modality Endoscopy 07/21/2024 10:3 7 AM EDT Impressions 07/21/2024 11:06 AM EDT - One 11 mm polyp in the sigmoid colon, removed with a ? hot snare. Resected and retrieved. ? - One 6 mm polyp in the descending colon, removed with ? a cold snare. Resected and retrieved. ? - Two 5 to 6 mm polyps in the cecum, removed with a ? cold snare. Resected and retrieved. ? - The examination was otherwise normal on direct and ? retroflexion views. Recommendation: ?- Await pathology results. ? - Repeat colonoscopy in 3 years for surveillance. Narrative 07/21/2024 11:06 AM EDT [facility] GI Patient Name: Chet Tao Procedure Date: 07/21/2024 10:37 AM Date of : 1965 Age: 59 Room: ROOM 15 Gender: Male Note Status: Finalized Attending MD: Pradeep Somers MD, Procedure Date No Time: 07/21/2024 Procedure: ? Colonoscopy Indications: ? High risk colon cancer surveillance: Personal history ? of colonic polyps Providers: ? Pradeep Somers MD Referring MD: ?Kash Cantor MD Medicines: ? Propofol per Anesthesia Complications: ? No immediate complications. Estimated Blood Loss: ? Estimated blood loss: none. Procedure: ? Pre-Anesthesia Assessment: ? - ASA Grade Assessment: II - A patient with mild ? systemic disease. ? After I obtained informed consent, the scope was ? passed under direct vision. Throughout the procedure, ? the patient's blood pressure, pulse, and oxygen ? saturations were monitored continuously.The Olympus ? Pediatric Colonoscope was introduced through the anus ? and advanced to the cecum, identified by appendiceal ? orifice and ileocecal valve. The colonoscopy was ? performed without difficulty. The patient tolerated ? the procedure well. The quality of the bowel ? preparation was good. Findings: ?The perianal and digital rectal examinations were ? normal. ? An 11 mm polyp was found in the sigmoid colon. The ? polyp was pedunculated. The polyp was removed with a ? hot snare. Resection and retrieval were complete. ? A 6 mm polyp was found in the descending colon. The ? polyp was sessile. The polyp was removed with a cold ? snare. Resection and retrieval were complete. ? Two sessile polyps were found in the cecum. The polyps ? were 5 to 6 mm in size. These polyps were removed with ? a cold snare. Resection and retrieval were complete. ? The exam was otherwise without abnormality on direct ? and retroflexion views. Procedure Code(s): ? --- Professional --- ? 32587, Colonoscopy, flexible; with removal of ? tumor(s), polyp(s), or other lesion(s) by snare ? technique Diagnosis Code(s): ? --- Professional --- ? D12.5, Benign neoplasm of sigmoid colon ? Z86.010, Personal history of colonic polyps ? D12.4, Benign neoplasm of descending colon ? D12.0, Benign neoplasm of cecum CPT copyright 2020 [employer]. All rights reserved. The codes documented in this report are preliminary and upon custody assistant review may be revised to meet current compliance requirements. Pradeep Somers MD 07/21/2024 11:06:28 AM This report has been signed electronically.Pradeep Somers MD Number of Addenda: 0 Note Initiated On: 07/21/2024 10:37 AM Scope In: Scope Out: ? Endoscopy Department at [facility] - [address] [place] [address], ? [place] [address] Procedure Note Pradeep Somers MD - 07/21/2024 [facility] GI Patient Name: Chet Tao Procedure Date: 07/21/2024 10:37 AM Date of : 1965 Age: 59 Room: ROOM 15 Gender: Male Note Status: Finalized Attending MD: Pradeep Somers MD, Procedure Date No Time: 07/21/2024 Procedure: Colonoscopy Indications: High risk colon cancer surveillance: Personalhistory of colonic polyps Providers: Pradeep Somers MD Referring MD: Kash Cantor MD Medicines: Propofol per Anesthesia Complications: No immediate complications. Estimated Blood Loss: Estimated blood loss: none. Procedure: Pre-Anesthesia Assessment: - ASA Grade Assessment: II - A patient with mild systemic disease. After I obtained informed consent, the scope was passed under direct vision. Throughout theprocedure, the patient's blood pressure, pulse, and oxygen saturations were monitored continuously.The Olympus Pediatric Colonoscope was introduced through theanus and advanced to the cecum, identified byappendiceal orifice and ileocecal valve. The colonoscopy was performed without difficulty. The patient tolerated the procedure well. The quality of the bowel preparation was good. Findings: The perianal and digital rectal examinations were normal. An 11 mm polyp was found in the sigmoid colon. The polyp was pedunculated. The polyp was removed witha hot snare. Resection and retrieval were complete. A 6 mm polyp was found in the descending colon. The polyp was sessile. The polyp was removed with acold snare. Resection and retrieval were complete. Two sessile polyps were found in the cecum. Thepolyps were 5 to 6 mm in size. These polyps were removedwith a cold snare. Resection and retrieval werecomplete. The exam was otherwise without abnormality ondirect and retroflexion views. Procedure Code(s): --- Professional --- 71360, Colonoscopy, flexible; with removal of tumor(s), polyp(s), or other lesion(s) by snare technique Diagnosis Code(s): --- Professional --- D12.5, Benign neoplasm of sigmoid colon Z86.010, Personal history of colonic polyps D12.4, Benign neoplasm of descending colon D12.0, Benign neoplasm of cecum CPT copyright 2020 [employer]. All rights reserved. The codes documented in this report are preliminary and upon custody assistant reviewmay be revised to meet current compliance requirements. Pradeep Somers MD 07/21/2024 11:06:28 AM This report has been signed electronically.Pradeep Somers MD Number of Addenda: 0 Note Initiated On: 07/21/2024 10:37 AM Scope In: Scope Out: Endoscopy Department at [facility] - [address] [place] [phone] IMPRESSION: - One 11 mm polyp in the sigmoid colon, removed with a hot snare. Resected and retrieved. - One 6 mm polyp in the descending colon, removedwith a cold snare. Resected and retrieved. - Two 5 to 6 mm polyps in the cecum, removed with a cold snare. Resected and retrieved. - The examination was otherwise normal on directand retroflexion views. Recommendation: - Await pathology results. - Repeat colonoscopy in 3 years for surveillance. Kash Cantor MD GI~PROCEDURE ORDERABLES Final Re sult * Tissue exam (07/21/2024 10:53 AM EDT) Final Diagnosis A. Descending colon polyp: Tubular adenoma B. Colon, cecum polyps x2: Tubular adenomata C. Sigmoid colon polyp: Tubular adenoma Margin is uninvolved 07/22/2024 4:40 PM EDT [facility] Gross Description A. Large Intestine, Left/Descending Colon, polyp: Labeled descending colon polyp . Received in formalin is a 0.6 cm irregular gonzales mucosal tissue fragment which is wrapped in paper and submitted in toto in one cassette, one piece, multiple levels on one slide. B. Large Intestine, Cecum, polyp x2: Labeled colon cecum polyp x 2 . Received in formalin are four irregular gonzales mucosal tissue fragments, each measuring approximately 0.2 cm in greatest dimension, which are wrapped in paper and submitted in toto one cassette, four pieces, multiple levels on one slide. C. Large Intestine, Sigmoid Colon, polyp: Labeled Sig colon polyp . Received in formalin is a 0.6 cm gonzales-pink mucosal polyp. The resection margin is inked black. The polyp is bisected. Also received in same container is an additional 0.3 cm pink-red mucosal tissue fragment. The specimen is wrapped in paper and entirely submitted one cassette, three pieces, multiple levels on one slide. LEONA 07/22/2024 4:40 PM EDT [facility] Disclaimer Unless otherwise specified, all tissue is 10% NB formalin fixed and paraffin embedded. 07/22/2024 4:40 PM EDT [facility] Tissue Descending colon structure / Unknown 07/21/2024 10:53 AM EDT 07/21/2024 12:12 PM EDT Tissue specimen (specimen) Cecum structure / Unknown 07/21/2024 10:56 AM EDT 07/21/2024 12:12 PM EDT Tissue specimen (specimen) Sigmoid colon structure / Unknown 07/21/2024 11:01 AM EDT 07/21/2024 12:12 PM EDT us Pradeep Somers MD LAB PATHOLOGY ORDERABLES Fi nal Result Performing Organization Address City/[facility]/ZIP Co de Phone Number [facility] [address] [place] [address], [place] [phone] * (ABNORMAL) Lipid panel with reflex to direct LDL (07/14/2024 11:13 AM EDT) Cholesterol 196 0 - 200 mg/dL LAB CHEMISTRY METHOD 07/14/2024 1:11 PM EDT [facility] Triglycerides 67 0 - 150 mg/dL LAB CHEMISTRY METHOD 07/14/2024 1:11 PM EDT [facility] HDL 73 >=40 mg/dL LAB CHEMISTRY METHOD 07/14/2024 1:11 PM EDT [facility] LDL Calculated 110(H) 0 - 100 mg/dL LAB CHEMISTRY METHOD 07/14/2024 1:11 PM EDT [facility] VLDL Cholesterol Perfecto 13.4 mg/dL LAB CHEMISTRY METHOD 07/14/2024 1:11 PM EDT [facility] Non HDL Chol. (LDL+VLDL) 123 <145 mg/dL LAB CHEMISTRY METHOD 07/14/2024 1:11 PM EDT [facility] Chol/HDL Ratio 2.7 0.0 - 4.4 LAB CHEMISTRY METHOD 07/14/2024 1:11 PM EDT [facility] Blood Venous blood specimen / Unknown Venipuncture / Unknown 07/14/2024 11:13 AM EDT 07/14/2024 11:23 AM EDT us Janet Chaudhry MD LAB BLOOD ORDERABLES Final Res ult [facility] [address] [place] [address], [place] [phone] * Complete blood count (07/14/2024 11:13 AM EDT) [facility] WBC 7.7 4.8 - 10.8 K/mcL LAB HEMETOLOGY METHOD 07/14/2024 11:33 AM [facility] RBC 4.80 4.50 - 5.50 M/mcL LAB HEMETOLOGY METHOD 07/14/2024 11:33 AM [facility] Hemoglobin 14.6 13.5 - 17.5 g/dL LAB HEMETOLOGY METHOD 07/14/2024 11:33 AM [facility] Hematocrit 44.2 42.0 - 54.0 % LAB HEMETOLOGY METHOD 07/14/2024 11:33 AM [facility] MCV 92.7 79.0 - 98.0 FL LAB HEMETOLOGY METHOD 07/14/2024 11:33 AM [facility] MCH 30.6 27.0 - 32.0 pcg LAB HEMETOLOGY METHOD 07/14/2024 11:33 AM [facility] MCHC 33.0 32.0 - 37.0 g/dL LAB HEMETOLOGY METHOD 07/14/2024 11:33 AM [facility] RDW 13.5 11.0 - 15.0 % LAB HEMETOLOGY METHOD 07/14/2024 11:33 AM [facility] Platelets 183 130 - 400 K/mcL LAB HEMETOLOGY METHOD 07/14/2024 11:33 AM [facility] MPV 10.5 7.0 - 11.0 FL LAB HEMETOLOGY METHOD 07/14/2024 11:33 AM [facility] NRBC 0.0 <1.0 % LAB HEMETOLOGY METHOD 07/14/2024 11:33 AM [facility] NRBC Absolute 0.00 <0.10 K/[facility] LAB HEMETOLOGY METHOD 07/14/2024 11:33 AM EDT [facility] Blood Venous blood specimen / Unknown Venipuncture / Unknown 07/14/2024 11:13 AM EDT 07/14/2024 11:25 AM EDT Janet Chaudhry MD LAB BLOOD ORDERABLES Final Res ult Performing Organization Address City/[facility]/ZIP Co de Phone Number [facility] [address] [place] [address], [place] [phone] * Thyroid stimulating hormone (07/14/2024 11:13 AM EDT) Pathologist [facility] [place] TSH 1.31 0.40 - 4.00 mcIU/mL LAB CHEMISTRY METHOD 07/14/2024 3:08 PM EDT [facility] Blood Venous blood specimen / Unknown Venipuncture / Unknown 07/14/2024 11:13 AM EDT 07/14/2024 11:23 AM EDT us Janet Chaudhry MD LAB BLOOD ORDERABLES Final Res ult Performing Organization Address [facility] de Phone Number [facility] [address] [place] [address], * Hemoglobin A1c (07/14/2024 11:13 AM EDT) Pathologist [facility] [place] Hemoglobin A1C 5.9 <6.5 % LAB CHEMISTRY METHOD 07/14/2024 2:19 PM EDT [facility] Mean Bld Glu Estim. 123 mg/dL LAB CHEMISTRY METHOD 07/14/2024 2:19 PM EDT [facility] Blood Venous blood specimen / Unknown Venipuncture / Unknown 07/14/2024 11:13 AM EDT 07/14/2024 11:25 AM EDT Janet Chaudhry MD LAB BLOOD ORDERABLES Final Res ult [facility] [address] [place] [address], * Comprehensive metabolic panel (07/14/2024 11:13 AM EDT) Sodium 139 133 - 145 mmol/L LAB CHEMISTRY METHOD 07/14/2024 1:11 PM [facility] Potassium 4.5 3.5 - 5.5 mmol/L LAB CHEMISTRY METHOD 07/14/2024 1:11 PM [facility] Chloride 108 96 - 110 mmol/L LAB CHEMISTRY METHOD 07/14/2024 1:11 PM [facility] CO2 25 21 - 32 mmol/L LAB CHEMISTRY METHOD 07/14/2024 1:11 PM [facility] Anion Gap 6 3 - 11 LAB CHEMISTRY METHOD 07/14/2024 1:11 PM [facility] Glucose 90 70 - 100 mg/dL LAB CHEMISTRY METHOD 07/14/2024 1:11 PM [facility] BUN 14 5 - 25 mg/dL LAB CHEMISTRY METHOD 07/14/2024 1:11 PM [facility] Creatinine 0.82 0.70 - 1.30 mg/dL LAB CHEMISTRY METHOD 07/14/2024 1:11 PM [facility] eGFR 100 >=60 mL/min/1. 73m2 LAB CHEMISTRY METHOD 07/14/2024 1:11 PM [facility] Comment:Calculation based on the??Chronic Kidney Disease Epidemiology Collaboration (CKD-EPI) equation refit??without adjustment for race. BUN/Creatinine Ratio 17.1 LAB CHEMISTRY METHOD 07/14/2024 1:11 PM [facility] Calcium 9.1 8.5 - 10.5 mg/dL LAB CHEMISTRY METHOD 07/14/2024 1:11 PM EDT [facility] AST (SGOT) 18 10 - 42 unit/L LAB CHEMISTRY METHOD 07/14/2024 1:11 PM EDT [facility] ALT (SGPT) 24 10 - 60 unit/L LAB CHEMISTRY METHOD 07/14/2024 1:11 PM EDT [facility] Alkaline Phosphatase 68 42 - 121 unit/L LAB CHEMISTRY METHOD 07/14/2024 1:11 PM EDT [facility] Total Protein 7.2 6.0 - 8.0 g/dL LAB CHEMISTRY METHOD 07/14/2024 1:11 PM EDT [facility] Albumin 3.8 3.2 - 5.0 g/dL LAB CHEMISTRY METHOD 07/14/2024 1:11 PM EDT [facility] Total Bilirubin 0.4 0.0 - 1.4 mg/dL LAB CHEMISTRY METHOD 07/14/2024 1:11 PM EDT [facility] Blood Venous blood specimen / Unknown Venipuncture / Unknown 07/14/2024 11:13 AM EDT 07/14/2024 11:23 AM EDT us Janet Chaudhry MD LAB BLOOD ORDERABLES Final Res ult [facility] [address] [place] [address], from Last 3 Months Insurance [employer] Member Subscriber Plan / Payer (Ef fective 2023-Present) Name:Chet Tao Jr. Relation to Subscriber:Self Name:Chet Tao Jr. Payer ID:[id number] Group ID:[id number] Type:Not on file Address: [address] [place] [address] Care Teams Trench Pipe Layer Relationship Specialty Start Date End Date Janet Chaudhry MD [address] [facility] [address] [place] [address] PCP - General Internal Medicine 02/15/18
--- OUTSIDE RECORDS SUMMARY | 2024-08-24 10:35 | XMS_ITS | Encounter Summary ---
Author Organization [facility] Address [address] [place] [address] Care Team Providers Care Computer Trainer Name Role Phone Janet Chaudhry MD Primary Care Provider [phone] Encounter Details Date Type Department Care Team (Late st Contact Info) Description 01/13/2024 10:51 AM EDT Hospital Encounter TH HISTORIC ENCOUNTERS EASTERN CONVERSION ONLY Katelyn Flynn MD [address] [place] [id number] Social History Tobacco Use Types Packs/Day Years [...] HPI: Patient is a very pleasant 58-year-old [place]ic-speaking man, who diagnosed with locally advanced squamous [...] Patient with a history of more than [id number] smoking, diagnosed with squamous cell carcinoma ofright [...] LUNG 58-year-old gentleman who has history of 18-tiip-evnd smoking history, diagnosed with locally advanced squamous [...] Description 09/14/2024 11:15 AM EDT Office Visit [facility] Hematology Oncology [address] [place] [address] Katelyn Flynn MD [address] [place] [address] 11/17/2024 9:30 AM EDT Ancillary Procedure [facility] Cardiology [facility] [address] [facility] [address] [place] [address] 11/24/2024 11:30 AM EDT Office Visit Internal Medicine - [place] [address] [phone] Janet Chaudhry MD [address] [phone] 03/13/2025 8:40 AM EST Office Visit [facility] Cardiology [facility] [address] [facility] [address] [place] [phone] Luba Duenas NP [address] [facility] [address] [place] [address] documented as of this encounter Visit Diagnoses Not on filedocumented in this encounter Care Teams Computer Trainer Relationship Specialty Start Date End Date Janet Chaudhry MD [address] [phone] PCP - General Internal Medicine 02/15/18 documented as of this encounter
[2024-08-24 18:41] LABS: Iron 114 mcg/dL (45-160); Magnesium 1.9 mg/dL (1.6-2.6); Percent Iron Saturation 41 % (15-50); Total Iron Binding Capacity 276 mcg/dL (228-428); Unsaturated Iron Binding 162 ug/dL
[2024-08-24 18:55] LABS: Ferritin 106 ng/mL (20-250)
[2024-08-24 19:05] LABS: Folate 13.6 ng/mL (> or = 4.0)
[2024-08-29 01:44] LABS: Vitamin D 25-OH, D2 <4 ng/mL; Vitamin D 25-OH, D3 25 ng/mL; Vitamin D 25-OH, Total 25 ng/mL (30-100)
== END 2024-08-24 09:51 | disposition home or self-care (01) ==
LOC: HO.HKASLDS 09:50
PROVIDERS: Visit Provider Nurse Practitioner Family
DX: E55.9 Vitamin D deficiency, unspecified (principal); R53.83 Other fatigue; D64.9 Anemia, unspecified; F32.A Depression, unspecified; R25.2 Cramp and spasm; R79.0 Abnormal level of blood mineral
CPT/HCPCS: 36415; 82306; 82728; 82746; 83540; 83735

== ENCOUNTER 2025-02-20 10:01 | Outpatient (REF) | payer OTHER, SELFPAY ==
--- OUTSIDE RECORDS SUMMARY | 2024-01-13 09:51 | XMS_ITS | Encounter Summary ---
Author Organization [facility] Address [address] [place] [address] Care Team Providers Care Sample Selector Name Role Phone Janet Chaudhry MD Primary Care Provider [phone] Encounter Details Date Type Department Care Team (Late st Contact Info) Description 01/13/2024 10:51 AM EDT Hospital Encounter TH HISTORIC ENCOUNTERS EASTERN CONVERSION ONLY Katelyn Flynn MD [address] [place] [id number] Social History Tobacco Use Types Packs/Day Years Used Date Smoking Tobacco: Former Cigarettes Q uit: 12/12/2014 Passive Smoke Exposure: Past Smokeless Tobacco: Never Alcohol Use Standard Drinks/Week Comments No 0 (1 standard drink = 0.6 oz pur e alcohol) Interpersonal Safety Answer Date Record ed Physical Abuse Unrecognized value 07/21/2024 Verbal Abuse Unrecognized value 07/21/2024 Sex and Gender Information Value Date Recorded Sex Assigned at Not on file Legal Sex Male 11:47 PM EST Gender Identity Not on file Sexual Orientation Not on file documented as of this encounter Last Filed Vital Signs Vital Sign Reading Time Taken Comments Blood Pressure 100/62 01/13/2024 11:20 AM EDT Sitting Left arm Pulse 81 01/13/2024 11:20 AM EDT Temperature - - Respiratory Rate - - Oxygen Saturation - - Inhaled Oxygen Concentration - - Weight 67.1 kg (148 lb) 01/13/2024 11:2 0 AM EDT Height 170.2 cm (5' 7 ) 06/23/2023 11:0 6 AM EDT Body Mass Index 23.18 11/11/2023 11:37 AM EDT documented in this encounter Progress Notes * Katelyn Flynn MD - 01/13/2024 11:15 AM EDT CHIEF COMPLAINT: Follow-up IDENTIFIER:Chet Tao Jr. is a 58 y.o. male. 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, patient also had oligometastatic disease in the brain, patient was treated with concurrent chemoradiation for the right lung with a very good response as well as brain lesion with radiation, patient has been on surveillance, patient had no signs symptoms suggestive of recurrence of his disease ROS: No anorexia or weight loss No chest pain shortness of breath except on exertion sometimes Minimal cough sometimes No hemoptysis No significant GI symptom except last week had couple days of abdominal cramps/pain which resolved Occasionally has some memory issues otherwise no issues neurologically Oncology History Overview Note Patient with a history of more than 92-evzv-sxpm smoking, diagnosed with squamous cell carcinoma ofright upper lung in Apr 2015, when he presented with worsening respiratory symptom Patient was seen by Dr. Rivas, patient had palliative radiation to the chest followed by 6 cycle of carboplatin with Abraxane, completed in September 2015 with very good response After completion of treatment had solitary brain metastases, treated with stereotactic radiation with a good response Patient has been on surveillance without any cytotoxic intervention for more than 2 years, most recent CT was in August [address] scan of chest on 12/28/2018 showed no significant change very stable post treatment sequela Patient developed some worsening respiratory symptom in April 2019 so I did a CT scan of chest on05/10/2019, that showed stable post treatment changes, no evidence of recurrence Patient follow-up CT scan on 10/31/2019 showed posttreatment changes involving the right hemithorax slightly less confluent compared to prior study otherwise no significant change and no new metastatic disease Patient has another follow-up CT scan in April 2020, that showed stable post therapy sequelae in the right lung, no evidence of any adenopathy or any metastatic disease Patient in early July 2020 diagnosed with COVID-19 infection, had significant respiratory distresslast for few weeks Patient CT scan of chest on 02/21/2021 showed stable treatment sequelae in the right hemithorax, nosuspicious pulmonary nodule or adenopathy Patient in early 2021 presented to hospital with seizures and is started on Keppra (there was no evidence of metastatic disease in the brain) CT scan in December 2021 again showed stable right hemithorax with treatment sequelae but there kirsten 0.4x 1.2 cm soft tissue nodule in posterior left hemithorax pleural surface, nonspecific, per radiology follow-up with a scan Underwent PET CT scan in March 2022 that showed nonspecific new left pleural process which cannot be confirmed on current PET CT scan, recommendation was to have follow-up CT of the chest Patient underwent follow-up CT scan of chest in June 2022 that showed posttreatment sequelae within the right hemithorax similar to prior studies, no evidence of thoracic lymphadenopathy or new/enlarging pulmonary nodule PAST MEDICAL HISTORY: Patient Active Problem List Diagnosis SNOMED CT(R) ??? Malignant neoplasm of upper lobe of right lung (HCC) MALIGNANT NEOPLASM OF RIGHT UPPER LOBE OF LUNG ??? Brain metastases METASTATIC MALIGNANT NEOPLASM TO BRAIN ??? Personal history of gastric ulcer H/O: GASTRIC ULCER ??? Hx of testicular cancer HISTORY OF MALIGNANT NEOPLASM OF TESTIS ??? Chronic bronchitis (HCC) CHRONIC BRONCHITIS Past Medical History: Diagnosis Date ??? Brain cancer (HCC) ??? Brain metastases 10/04/2016 ??? CHF (congestive heart failure) (HCC) ??? Hypertension ??? Lung cancer (HCC) SOCIAL HISTORY: Social History Tobacco Use ??? Smoking status: Former Packs/day: 2 Types: Cigarettes Quit date: 12/12/2014 Years since quittin.0 ??? Smokeless tobacco: Never Substance Use Topics ??? Alcohol use: No FAMILY HISTORY: Family History Problem Relation Age of Onset ??? Heart attack Mother ??? Alcohol abuse Father Family Status Relation Name Status ??? Mother ??? Father ??? Sister Current Outpatient Medications: ??? albuterol (PROVENTIL HFA;VENTOLIN HFA) 108 (90 Base) MCG/ACT inhaler, Inhale 2 puffs into the lungs every 4 (four) hours as needed for wheezing., Disp: , Rfl: ??? albuterol (PROVENTIL) (2.5 MG/3ML) 0.083% nebulizer solution, INL 3 ML BY NEBULIZATION ROUTE TID, Disp: , Rfl: 3 ??? ASPIRIN LOW DOSE 81 MG EC tablet, TK 1 T PO D, Disp: , Rfl: 3 ??? atorvastatin (LIPITOR) tablet 20 mg, Take 1 tablet (20 mg total) by mouth daily., Disp: , Rfl: ??? INCRUSE ELLIPTA 62.5 MCG/INH AEPB, INL 1 PUFF PO QD, Disp: , Rfl: 3 ??? methylPREDNISolone (MEDROL) 4 MG tablet, Take 1 tablet (4 mg total) by mouth daily., Disp: , Rfl: ??? omeprazole (PRILOSEC) 20 MG capsule, Take 1 capsule (20 mg total) by mouth as needed., Disp: , Rfl: ??? oxyCODONE (ROXICODONE) 5 MG immediate release tablet, Take 1 tablet (5 mg total) by mouth every8 (eight) hours as needed for pain., Disp: 24 tablet, Rfl: 0 ??? SPIRIVA RESPIMAT 2.5 MCG/ACT AERS, INHALE 2 PUFFS PO QD AT THE SAME TIME EACH DAY, Disp: , Rfl:3 ??? traZODone (DESYREL) 50 MG tablet, TAKE 1 TABLET(50 MG) BY MOUTH EVERY NIGHT AT BEDTIME, Disp: 90 tablet, Rfl: 3 You are allergic to the following Date Reviewed: 01/13/2024 Allergen Reactions Penicillins Not Noted PHYSICAL EXAM: BP 100/62 (BP Location: Left arm) Pulse 81 Temp 98.7 ??F (37.1 ??C) (Temporal) Wt 67.1 kg (148 lb) SpO2 100% BMI 23.18 kg/m?? ECOG 0 APPEARANCE: Alert and oriented in no acute distress EYES: nonicteric sclera pink conjunctiva ORAL CAVITY: No erythema or exudates NECK: Neck supple, no cervical and supraclavicular adenopathy, HEART: normal S1 and S2 LUNG: clear to auscultation bilaterally LYMPH NODES: No palpable superficial adenopathy ABDOMEN: soft, nontender and no organomegaly appreciated EXTREMITIES: No edema erythema tenderness IMPRESSION: SNOMED CT(R) 1. Malignant neoplasm of upper lobe of right lung (HCC) MALIGNANT NEOPLASM OF RIGHT UPPER LOBE OF LUNG 58-year-old gentleman who has history of 26-sqvf-dnmn smoking history, diagnosed with locally advanced squamous cell carcinoma of right lung, treated with concurrent chemoradiation, patient also had oligometastatic brain lesion treated with radiation, patient responded to treatment very well and has no signs symptom of recurrence since then Patient last CT scan was last year, we discussed about follow-up scan but exposure of unnecessary radiation etc., since his exam is unremarkable as well as he has no signs symptoms suggestive of recurrence decision made to continue to watch him without any intervention PLAN: Return to office next summer If develop any unusual symptoms, he can come earlier Katelyn Flynn MD documented in this encounter Plan of Treatment Upcoming Encounters Date Type Department Care Team (Late st Contact Info) Description 03/13/2025 8:40 AM EST Office Visit [facility] 102 300 [facility] 102 [place] [address] Luba Duenas NP [address] [place] [address] Dr Prince [address] [place] [address] 03/29/2025 1:30 PM EST Ancillary Procedure [facility] 101 300 [facility] 101 [place] [phone] 04/18/2025 9:45 AM EST Office Visit Pulmonology [facility] 175 [facility] 200 [place] [phone] Aleksey Ruth MD [address] [place] [phone] 06/14/2025 9:30 AM EST Office Visit [facility] Hematology Oncology [address] [place] [phone] Katelyn Flynn MD [address] [place] [address] documented as of this encounter Visit Diagnoses Not on filedocumented in this encounter Care Teams Sample Selector Relationship Specialty Start Date End Date Janet Chaudhry MD [address] [phone] PCP - General Internal Medicine 02/15/18 documented as of this encounter
--- OUTSIDE RECORDS SUMMARY | 2025-02-16 08:50 | XMS_ITS | Encounter Summary ---
Author Organization [facility] Address [address] [place] [address] Care Team Providers Care Incident Response Consultant Name Role Phone Janet Chaudhry MD Primary Care Provider [phone] Reason for Referral * Imaging (Routine) - Authorized Specialty Diagnoses / Procedures Referred By Contac t Referred To Contact Radiology Diagnoses Dysphagia, unspecified type Vomiting without nausea, unspecified vomiting type Procedures XR Barium Swallow with Video and Speech Janet Chaudhry MD [address] [address] Phone: tel: fax: [facility] CT Scan [address] [place] [address] Phone: tel: Referral ID Status Reason Start Date Expiration Date V isits Requested Visits Authorized [id number] Authorized 11/24/2024 11/24/2025 1 1 Reason for Visit * Imaging (Routine) - Authorized Specialty Diagnoses / Procedures Referred By Contac t Referred To Contact Radiology Diagnoses Dysphagia, unspecified type Vomiting without nausea, unspecified vomiting type Procedures XR Barium Swallow with Video and Speech Janet Chaudhry MD [address] [address] Phone: tel: fax: [facility] CT Scan [address] [place] [address] Phone: tel: Referral ID Status Reason Start Date Expiration Date V isits Requested Visits Authorized [id number] Authorized 11/24/2024 11/24/2025 1 1 Encounter Details Date Type Department Care Team (Latest Contact Info) Description 02/16/2025 8:50 AM EST - 02/16/2025 11:59 PM EST Hospital Encounter [facility] Xray [address] [place] [address] Evelyn Roach, HEADING SAW OPERATOR Dysphagia, unspecified type; Vomiting without nausea, unspecified vomiting type Discharge Disposition: Home or Self Care Social History Tobacco Use Types Packs/Day Years [...] on file documented as of this encounter Medications at Time of Discharge acetaminophen (TYLENOL) 500 mg tablet Take 1 tablet (500 mg total) by mouth. 9 albuterol 2.5 mg /3 mL (0.083 %) nebulizer solution Take 1 Vial by nebulization every 4 hours as needed for Wheezing for up to 180 days. 1 albuterol HFA (Ventolin HFA) 90 mcg/actuation inhalerIndications: Centrilobular emphysema (CMS/HCC V24, CMS/HCC V28) Inhale 2 puffs by mouth every 6 (six) hours if needed for wheezing. 6.7 g 11 5 aspirin 81 mg EC tablet TAKE 1 TABLET BY MOUTH EVERY DAY 90 tablet 5 atorvastatin (LIPITOR) 40 mg tablet Take 1 tablet (40 mg total) by mouth 1 (one) time each day. 90 each 1 5 budesonide-formoter oL (SYMBICORT) 160-4.5 mcg/actuation inhaler Inhale 2 puffs by mouth 2 (two) times a day. 1 each 11 5 cyanocobalamin (VITAMIN B-12) 1,000 mcg tablet TAKE 1 TABLET BY MOUTH EVERY DAY 90 tablet 5 docusate sodium (COLACE) 100 mg capsule Take 1 capsule (100 mg total) by mouth. 9 FeroSuL 325 mg (65 mg iron) tablet TAKE 1 TABLET BY MOUTH THREE TIMES A WEEK (MON-THU-THU); TAKE WITH VITAMIN C TABLET. 12 tablet 3 5 gabapentin (NEURONTIN) 100 mg capsule TAKE 1 CAPSULE BY MOUTH THREE TIMES DAILY 90 capsule 1 5 ibuprofen (ADVIL,MOTRIN) 600 mg tablet Take 1 tablet (600 mg total) by mouth 4 (four) times a day. 5 levETIRAcetam XR (KEPPRA XR) 500 mg 24 hr tablet 4 lisinopriL (PRINIVIL,ZESTRIL) 5 mg tabletIndications:D ilated cardiomyopathy (CMS/HCC V24, CMS/HCC V28) Take 1 tablet (5 mg total) by mouth 1 (one) time each day. 30 each 11 5 11/19/19 26 LORazepam (ATIVAN) 0.5 mg tablet Take 1 tablet (0.5 mg total) by mouth. metoprolol succinate (TOPROL-XL) 25 mg 24 hr tablet Take 0.5 tablets (12.5 mg total) by mouth 1 (one) time each day. 45 tablet 2 5 NEBULIZERS MISC 1 Units by Does not apply route every 4 hours as needed. omeprazole (PriLOSEC) [address] capsule TAKE 1 CAPSULE BY MOUTH EVERY DAY 90 capsule 5 oxyCODONE (ROXICODONE) 5 mg immediate release tabletIndications:R estless legs Take 1 tablet (5 mg total) by mouth every 8 (eight) hours if needed for severe pain. Max Daily Amount: 15 mg 24 tablet 5 riboflavin (VITAMIN B2) 400 mg tablet 4 rOPINIRole (REQUIP) 0.5 mg tablet 4 Spiriva Respimat 2.5 mcg/actuation inhalation spray Inhale 2 puffs by mouth 1 (one) time each day. 5 sucralfate (CARAFATE) 1 gram tablet Take 1 g by mouth 2 times daily. traZODone (DESYREL) 50 mg tablet TAKE 1 TABLET BY MOUTH AT BEDTIME 4 umeclidinium (INCRUSE ELLIPTA) 62.5 mcg/actuation inhalation Inhale 1 puff by mouth 1 (one) time each day. 1 each 11 5 Vitamin C 500 mg tablet 5 Vitamin D3 25 mcg (1,000 unit) capsule TAKE 1 CAPSULE BY MOUTH EVERY DAY 30 capsule 3 5 dapagliflozin propanediol (FARXIGA) 10 mg tablet Take 1 tablet (10 mg total) by mouth 1 (one) time each day. 30 each 5 02/21/20 25 documented as of this encounter Discharge Disposition Disposition Code Departure Means Destination Home or Self Care documented in this encounter Procedure Notes * Evelyn Huizar, HEADING SAW OPERATOR - 02/16/2025 9:45 AM EST Images from the original note were not included. Speech/Language Pathology OUTPATIENT MODIFIED BARIUM SWALLOW STUDY/ VIDEOFLUOROSCOPIC EVALUATION OF THE SWALLOW NAME: Chet Tao Jr. DATE OF : 1965 DATE: 02/16/2025 RECOMMENDATIONS: Recommendations/Treat Recommendations: Continued dysphagia therapy Solid Consistency: IDDSI Level 7 Regular Liquid Consistency: Thin liquids Liquid Administration Via: Cup, Syringe Recommended Medication Route: PO Recommended Medication Administration: (per patient preference) Supervision: Independent Compensations: Alternating liquids and solids, Slow rate, Small sips/bites Postural Changes and/or Swallow Maneuvers: Out of bed, Upright TREATMENT RECOMMENDATIONS: Patient would benefit from Outpatient HEADING SAW OPERATOR Services following this Instrumental Assessment Summary and Impressions: Chet Tao Jr. is a 60 y.o. who presents with Mild Oropharyngeal Dysphagia. Characterizations include decreased base of tongue retraction and decreased hyolaryngeal elevation/excursion causing vallecular and pyriform sinus residue. Patient had Partial duration and partial distention of the pharyngoesophageal segment resulted in partial obstruction of flow. Slow clearance noted below cricopharyngeus. Patient may benefit from further Esophageal testing for motility. Discussed results and recommendations with patient. Recommend Outpatient HEADING SAW OPERATOR for dysphagia tx. TIME IN: 0915 TIME OUT: 1000 MINUTES: 45 DEPUTY COMMONWE[employer]'S ATTORNEY REQUIRED: No GENERAL INFORMATION: Ordering Physician: Janet Chaudhry MD Radiologist: CHRISTIANO España Date of Onset: 11/24/24 Date of Order: 11/24/24 Date of Evaluation: 02/16/25 Type of Study: Initial MBS Reason for Study: Patient referred for MBS due to feeling like food is sticking around the lower throat region. Patient has dx COPD, h/o seizures, Lung Ca s/p Radiation and surgical removal of Brain tumor. No unintentional weight loss. Diet Prior to this Study: regular diet Dysphagia Diagnosis: (oropharyngeal dysphagia) SUBJECTIVE: Pleasant, ambulatory. Cognitive skills WNL to follow commands and provide history. Dysphagia, unspecified type [R13.10] Vomiting without nausea, unspecified vomiting type [R11.11] XR BARIUM SWALLOW WITH VIDEO AND SPEECH [[id number]] ALLERGIES: Allergies[1] OBJECTIVE Respiratory status: Room air DYSPHAGIA HISTORY/PREVIOUS MBSs none DYSPHAGIA SYMPTOMS REPORTED: Difficulty swallowing food and Food gets stuck MENTAL STATUS: Alert , Responsive, and Cooperative Oral/Motor: Oral Motor Comments: Oral motor skills WNL for speech/swallow tasks. Fluoroscopy View: Lateral Position during Eval: Standing CONSISTENCIES TRIALED FOOD: IDDSI Level 7 Regular and IDDSI Level 4 Puree LIQUID: IDDSI Level 3 Moderately Thick, IDDSI Level 2 Mildly Thick, and IDDSI Level 0 Thin BARIUM TABLET: whole with water Oral Phase: Oral Phase: Impaired Oral Phase - Comment: Premature spillage. Adequate oral transit and clearance. Pharyngeal Phase: Pharyngeal Phase: Impaired Pharyngeal Comment: Decreased base of tongue retraction and decreased hyolaryngeal elevation/excursion. Vallecular and pyriform sinus residue throughout study, cleared with sip of clear water. No laryngeal penetration and no tracheal aspiration. Cricopharyngeal/Esophageal Phase: Cricopharyngeal Phase: Impaired Cricopharyngeal Comment: Partial duration and partial distention of the pharyngoesophageal segment resulted in partial obstruction of flow and pyriform sinus residue. Slow clearance noted below Cricopharyngeus. Cricopharyngeal Comment: Partial duration and partial distention of the pharyngoesophageal segment resulted in partial obstruction of flow and pyriform sinus residue. Slow clearance noted below Cricopharyngeus. 8- Point Penetration Aspiration Scale (PAS) Consistency- (IDDSI level) Score Comments Moderate thick liquids (3) 1- Material does not enter airway. Mildly thick liquids (2) 1- Material does not enter airway. Thin liquids (0) 1- Material does not enter airway. Puree (4) 1- Material does not enter airway. Regular solids (7) 1- Material does not enter airway. Barium tablet 1- Material does not enter airway. Other: HANNA Ugarte, Arabella Mendieta, Jes MARKHAM, ARIEL Paiz, & ARIEL Leos. A Penetration- Aspiration Scale. Dysphagia 11:93-98, 1995. EDUCATION Education: Education provided: Reviewed MBS video Swallow strategies Recommended referral Applied Knowledge, Verbal Understanding, and Demonstrated Skills LANNY Nagel 02/16/2025 Please note that swallowing is a dynamic process and the skills reflected during this brief assessment may not necessarily represent the patient's swallowing function during an entire meal. Ongoing clinical judgment is strongly advised. [1] Allergies Allergen Reactions Penicillins documented in this encounter Plan of Treatment Upcoming Encounters Date Type Department Care Team (Late st Contact Info) Description 03/13/2025 8:40 AM EST Office Visit [facility] 102 [address] [facility] 102 [place] [address] Luba Duenas NP [address] [place] [address] [address] [place] [address] 03/29/2025 1:30 PM EST Ancillary Procedure [facility] 101 300 [facility] 101 [place] [address] 04/18/2025 9:45 AM EST Office Visit Pulmonology [facility] 175 [facility] 200 [place] [phone] Aleksey Ruth MD [address] [place] [phone] 06/14/2025 9:30 AM EST Office Visit [facility] Hematology Oncology [address] [place] [address] Katelyn Flynn MD [address] [place] [address] documented as of this encounter Procedures Procedure Name Priority Date/Time Associated Diagnosis Comments XR BARIUM SWALLOW WITH VIDEO AND SPEECH Routine 02/16/2025 9:22 AM EST Dysphagia, unspecified type Vomiting without nausea, unspecified vomiting type documented in this encounter Results * XR Barium Swallow with Video and Speech (02/16/2025 9:22 AM EST) Anatomical Region Laterality Modality Head and Neck Radiographic Kristyn ging 02/16/2025 11:4 0 AM EST Impressions 02/17/2025 5:16 PM EST Normal swallowing function. Please refer to the dedicated speech pathologist report for further details as clinically indicated. -------- FINAL REPORT -------- Dictated By: Arely Lamb Dictated Date: 02/16/2025 11:40 ET Assigned Physician: Jacob Cortes Reviewed and Electronically Signed By: Jacob Cortes Signed Date: 02/17/2025 17:16 ET Workstation ID: [id number] Transcribed By: Self Edit Transcribed Date: 02/16/2025 11:42 ET Resident/PA/WAREHOUSE SORTER: Arely Lamb Narrative 02/17/2025 5:16 PM EST STUDY: Modified barium swallow study COMPARISON: Modified barium swallow 2016 HISTORY: Dysphagia. Hx mets to brain, lung Ca TECHNIQUE: Multiple sequential fluoroscopic images of the lateral neck were obtained for a swallowing function study. Barium enhanced consistencies of pudding, honey, nectar, thin liquid, semi- solid, and a 13 mm barium tablet were utilized for evaluation. Examination was performed with the speech therapist present. FINDINGS: There was no evidence for penetration or aspiration of the various consistencies. 13mm barium tablet was swallowed without difficulty with prompt passage of pill past the hypopharynx DAP: 0.13 Gycm^2 Procedure Note Jacob Cortes MD - 02/17/2025 STUDY: Modified barium swallow study COMPARISON: Modified barium swallow 2016 HISTORY: Dysphagia. Hx mets to brain, lung Ca TECHNIQUE: Multiple sequential fluoroscopic images of the lateral neckwere obtained for a swallowing function study. Barium enhancedconsistencies of pudding, honey, nectar, thin liquid, semi-solid, and a 13mm barium tablet were utilized for evaluation. Examination was performedwith the speech therapist present. FINDINGS: There was no evidence for penetration or aspiration of the variousconsistencies. 13mm barium tablet was swallowed without difficulty withprompt passage of pill past the hypopharynx DAP: 0.13 Gycm^2 IMPRESSION: Normal swallowing function. Please refer to the dedicated speech pathologist report for furtherdetails as clinically indicated. -------- FINAL REPORT -------- Dictated By: Arely Lamb Dictated Date: 02/16/2025 11:40 ET Assigned Physician: Jacob Cortes Reviewed and Electronically Signed By: Jacob Cortes Signed Date: 02/17/2025 17:16 ET Workstation ID: [id number] Transcribed By: Self Edit Transcribed Date: 02/16/2025 11:42 ET Resident/PA/WAREHOUSE SORTER: Arely Lamb Janet Chaudhry MD IMG FLUOROSCOPY PROCEDURES Fin al Result documented in this encounter Visit Diagnoses Diagnosis Dysphagia, unspecified type Vomiting without nausea, unspecified vomiting type documented in this encounter Administered Medications Inactive Administered Medications - up to 3 most recent administrations Medication Order MAR Action Action Date Dose Rate Site barium sulfate (E-Z-DISK) tablet 700 mg 700 mg, oral, Once in imaging, Starting on Lindsay 02/16/25 at 0923, For 1 dose, Swallow whole with 1-2 swallows of water just prior to fluoroscopic examination. Given 02/16/2025 9:25 AM EST 700 mg barium sulfate (VARIBAR HONEY) 40 % (w/v) 29% (w/w) suspension 5 mL 5 mL, oral, Once in imaging, Starting on Lindsay 02/16/25 at 0923, For 1 dose Given 02/16/2025 9:25 AM EST 5 mL barium sulfate (VARIBAR NECTAR, TAGITOL V) 40 % (w/v) suspension 30 mL 30 mL, oral, Once in imaging, Starting on Lindsay 02/16/25 at 0923, For 1 dose Given 02/16/2025 9:25 AM EST 30 mL barium sulfate (VARIBAR PUDDING) 40 % (w/v), 30% (w/w) oral paste 5 mL 5 mL, oral, Once in imaging, Starting on Lindsay 02/16/25 at 0923, For 1 dose, Administer with oral syringe or spoon. Max cumulative dose of 30 mL. Discard any unused product 21 days after tube opened. Given 02/16/2025 9:24 AM EST 5 mL barium sulfate (VARIBAR THIN LIQUID) 40% (w/v), 81% (w/w) suspension 30 mL 30 mL, oral, Once in imaging, Starting on Lindsay 02/16/25 at 0924, For 1 dose Given 02/16/2025 9:24 AM EST 30 mL documented in this encounter Care Teams Incident Response Consultant Relationship Specialty Start Date End Date Janet Chaudhry MD [address] [place] [phone] PCP - General Internal Medicine 02/15/18 documented as of this encounter
--- OUTSIDE RECORDS SUMMARY | 2025-02-20 11:41 | XMS_ITS | Encounter Summary ---
Author Organization [facility] Address [address] [place] [address] Care Team Providers Care Housing Management Representative Name Role Phone Janet Chaudhry MD Primary Care Provider [phone] Encounter Details Date Type Department Care Team (Late Contact Info) Description 02/17/2025 Results Follow-Up Internal Medicine - [place] 175 [facility] [address] [place] [phone] Janet Chaudhry MD [address] [place] [phone] Social History Tobacco Use Types Packs/Day Years [...] Department Care Team (Late Contact Info) Description 03/13/2025 8:40 AM EST Office Visit [facility] - [facility] 102 300 [facility] 102 [place] [phone] Luba Duenas NP [address] [place] [address] [place] [address] 03/29/2025 1:30 PM EST Ancillary Procedure [facility] 101 300 [facility] 101 [place] [phone] 04/18/2025 9:45 AM EST Office Visit Pulmonology - [place] 175 [facility] 200 [place] [phone] Aleksey Ruth MD 230 [place] [phone] 06/14/2025 9:30 AM EST Office [facility] Hematology Oncology [address] [place] [phone] Katelyn Flynn MD [address] [place] [address] documented as of this encounter Visit Diagnoses Not on filedocumented in this encounter Care Teams Housing Management Representative Relationship Specialty Start Date End Date Janet Chaudhry MD [address] [phone] PCP - General Internal Medicine 02/15/18 documented as of this encounter
--- OUTSIDE RECORDS SUMMARY | 2025-02-20 11:41 | XMS_ITS | Encounter Summary ---
Author Organization [facility] Address [address] [place] [address] Care Team Providers Care Flake Or Shred Roll Operator Name Role Phone Janet Chaudhry MD Primary Care Provider [phone] Encounter Details Date Type Department Care Team (Late Contact Info) Description 02/07/2025 Lab Requisition [facility] - Main Lab 299 [facility] [place] [address] Robi Hinojosa PA [address] [place] [address] [place] [address] Elevated prostate specific antigen (PSA); Benign prostatic hyperplasia with lower urinary tract symptoms Social History Tobacco Use Types Packs/Day Years [...] Description 03/13/2025 8:40 AM EST Office Visit [facility] - [place] [address] [facility] [address] [place] [address] Luba Duenas NP [address] [place] [address] [address] [place] [address] 03/29/2025 1:30 PM EST Ancillary Procedure [facility] - [place] [facility] 101 [place] [address] 04/18/2025 9:45 AM EST Office Visit Pulmonology - [place] 175 [facility] [address] [place] [phone] Aleksey Ruth MD [address] [place] [address] 06/14/2025 9:30 AM EST Office Visit [facility] Hematology Oncology [address] [place] [phone] Katelyn Flynn MD [address] [place] [address] documented as of this encounter Procedures Procedure Name Priority Date/Time Associated Diagnosis Comments PROSTATE SPECIFIC ANTIGEN DIAGNOSTIC Routine 02/07/2025 11:13 AM EDT Elevated prostate specific antigen (PSA) Benign prostatic hyperplasia with lower urinary tract symptoms documented in this encounter Results * Prostate specific antigen diagnostic (02/07/2025 11:13 AM EDT) PSA 1.67 0.00 - 4.00 ng/mL LAB CHEMISTRY METHOD 02/07/2025 3:49 PM EDT [facility] Blood Venous blood specimen / Unknown 02/07/2025 11:13 AM EDT 02/07/2025 3:04 PM EDT Narrative [facility] - 02/07/2025 3:49 PM EDT The Siemens Advia Centaur Chemiluminescent Immunoassay is used. Results obtained with different assay methods or kits cannot be used interchangeably. Results cannot be interpreted as absolute evidence of the presence or absence of malignant disease. us Robi ALVARADO LAB BLOOD ORDERABLES Final Resul t [facility] [address] [place] [address], documented in this encounter Visit Diagnoses Diagnosis Elevated prostate specific antigen (PSA) Benign prostatic hyperplasia with lower urinary tract symptoms documented in this encounter Care Teams Flake Or Shred Roll Operator Relationship Specialty Start Date End Date Janet Chaudhry MD 175 [facility] 200 [place] [address] PCP - General Internal Medicine 02/15/18 documented as of this encounter
--- OUTSIDE RECORDS SUMMARY | 2025-02-20 11:41 | XMS_ITS | Clinical Summary ---
Author Organization [facility] Address [address] [place] [address] Phone Care Team Providers Care Furniture Dipper Name Role Phone Janet Chaudhry MD Primary Care Provider [phone] Allergies Active Allergy Reactions Criticality Noted Date Comments Penicillins 05/18/2015 Medications levETIRAcetam XR (KEPPRA XR) 500 mg 24 [...] route every 4 hours as needed. Active FeroSuL 325 mg (65 mg iron) tablet TAKE 1 TABLET BY MOUTH THREE TIMES A WEEK (MON-WED-FRI); TAKE WITH VITAMIN C TABLET. 12 tablet 3 05/25/19 25 Active rOPINIRole (REQUIP) 0.5 mg tablet 10/29/19 24 Active riboflavin (VITAMIN B2) 400 mg tablet 04/05/20 24 Active LORazepam (ATIVAN) 0.5 mg tablet Take 1 tablet (0.5 mg total) by mouth. Active docusate sodium (COLACE) 100 mg capsule Take 1 capsule (100 mg total) by mouth. 11/18/19 19 Active Vitamin C 500 mg tablet 06/14/19 [...] DAILY 90 capsule 1 07/15/19 25 Active Vitamin D3 25 mcg (1,000 unit) capsule TAKE 1 CAPSULE BY MOUTH EVERY DAY 30 capsule 3 10/05/19 25 Active ibuprofen (ADVIL,MOTRIN) 600 mg tablet Take 1 tablet (600 mg total) by mouth 4 (four) times a day. 05/31/19 25 Active Spiriva Respimat 2.5 mcg/actuation inhalation spray Inhale 2 puffs by mouth 1 (one) time each day. 05/30/19 25 Active lisinopriL (PRINIVIL,ZESTRIL) 5 mg tabletIndications: Dilated cardiomyopathy (CMS/HCC V24, CMS/HCC V28) Take 1 tablet (5 mg total) by mouth 1 (one) time each day. 30 each 11/19/19 25 026 Active albuterol HFA (Ventolin HFA) 90 mcg/actuation inhalerIndications :Centrilobular emphysema (CMS/HCC V24, CMS/HCC V28) Inhale 2 puffs by mouth every 6 (six) hours if needed for wheezing. 6.7 g 12/22/19 25 Active cyanocobalamin (VITAMIN B-12) 1,000 mcg tablet TAKE 1 TABLET BY MOUTH EVERY DAY 90 tablet 12/27/19 25 Active atorvastatin (LIPITOR) 40 mg tablet Take 1 tablet (40 mg total) by mouth 1 (one) time each day. 90 each 1 12/27/19 25 Active aspirin 81 mg EC tablet TAKE 1 TABLET BY MOUTH EVERY DAY 90 tablet 01/05/20 25 Active budesonide-formote roL (SYMBICORT) 160-4.5 mcg/actuation inhaler Inhale 2 puffs by mouth 2 (two) times a day. 1 each 01/13/20 25 Active umeclidinium (INCRUSE ELLIPTA) 62.5 mcg/actuation inhalation Inhale 1 puff by mouth 1 (one) time each day. 1 each 11 01/13/20 Active omeprazole (PriLOSEC) [address] capsule TAKE 1 CAPSULE BY MOUTH EVERY DAY 90 capsule 01/13/20 Active Additional Information Patient not taking.Reported on 01/27/2025 oxyCODONE (ROXICODONE) 5 mg immediate release tabletIndications: Restless legs Take 1 tablet (5 mg total) by mouth every 8 (eight) hours if needed for severe pain. Max Daily Amount: 15 mg 24 tablet 01/19/20 Active dapagliflozin propanediol (FARXIGA) 10 mg tablet Take 1 tablet (10 mg total) by mouth 1 (one) time each day. 90 each 3 01/28/20 25 025 Discontin ued(Reord er) dapagliflozin propanediol (FARXIGA) 10 mg tablet Take 1 tablet (10 mg total) by mouth 1 (one) time each day. 30 each 02/08/20 025 Discontin ued(Side effects) Active Problems Problem Noted Date Diagnosed Date Claudication ([facility] V24) 01/27/2025 Assessment & Plan (01/27/2025 11:12 AM EDT): The patient does carry a diagnosis of restless leg syndrome which may be contributing to his nighttime symptoms; this is being addressed with ropinirole. However, he is also having claudication symptoms with ambulation and he does have risk factors for peripheral artery disease with previous smoking history and hyperlipidemia. He was encouraged to continue to attempt to walk through this pain to help develop collateral circulation. Additionally, his pulses do seem somewhat weakened on exam. We will evaluate this further with an arterial duplex with TARUN of both lower extremities. Worrisome symptoms for which she should return to care or seek urgent medical attention were reviewed. We will refer to vascular surgery as appropriate once the results of his imaging are reviewed. Orders: Vascular US duplex lower extremity arteries bilateral with TARUN; Future Nocturnal leg cramps 01/27/2025 Assessment & Plan (01/27/2025 11:12 AM EDT): As above; this has been ongoing for at least 1.5 years and is continuing to worsen over time. His potassium level was within normal limits on his recent labs at the beginning of December 2024 at which time he continued to have symptoms; as such we have decided to forego a recheck of his potassium to rule out hypokalemia. Will await arterial duplex as above. Orders: Vascular US duplex lower extremity arteries bilateral with TARUN; Future History of cocaine abuse ([facility] V24, [facility] V 28) 01/27/2025 Dyspnea on exertion 01/27/2025 Assessment & Plan (01/27/2025 11:12 AM EDT): As discussed above, the patient does report mild dyspnea with significant exertion but states that it does not interfere with his daily activities and does respond well to his rescue inhaler. As such, it does appear to be related more to his underlying pulmonary disease than heart failure; it is also reassuring that he has no other symptoms concerning for overt heart failure and is able to remain active on a regular basis without issue. We reviewed worrisome signs or symptoms for which she should return to care in relation to his systolic heart failure and he verbalizes understanding and agreement with this plan. Should his shortness of breath worsen or not be relieved with his rescue inhaler as it has in the past, he will notify the office immediately. Chest wall pain 06/25/2023 Overview (03/28/2024): Last [...] for HIRAM and will follow-up with his film library clerk further regarding this. Palpitations 06/25/2023 Overview (03/28/2024): Last Assessment & Plan: We will evaluate this further with 48-hour Holter monitor and readdress as needed. EKG today shows no ectopy; heart rate is well-controlled. Restless legs 01/30/2023 Chronic systolic congestive heart failure (CMS/HCC V24, CMS/HCC V28) 01/29/2023 Assessment & Plan (01/27/2025 11:12 AM EDT): Cardiomyopathy (CMS/HCC V24, CMS/HCC V28) 2021 Overview (03/28/2024): Last Assessment & [...] day or 4 pounds in one week. Assessment & Plan (01/27/2025 11:12 AM EDT): The patient has a long history of a reduced EF in the range of 40 to 45% dating back to at least September 2017; an echocardiogram in October 2023 did show a slight further reduction in his EF to 35 to 40% which was also confirmed on echocardiogram updated 11/17/2024. The cause for his cardiomyopathy has remained somewhat unclear; as such, he underwent cardiac MRI 12/23/2024 which did show mild edema suspicious for myocarditis or drug/radiation related cardiomyopathy. The patient does admit to a long history of cocaine abuse, using daily for at least 30 years; he also had 7 months of chemotherapy and 3 weeks of radiation to the chest for previous lung cancer. Both of these factors may be contributory. Fortunately, he appears to be well compensated on exam today and offers no symptoms concerning for overt heart failure or underlying ischemia that could be contributory. He had a cardiac cath completed in 2016 which showed only minimal luminal irregularities; as such, the likelihood that this is related to ischemia is very low and as such we will defer repeat cardiac catheterization as he is not having any ischemic symptoms. GDMT for heart failure has included low-dose metoprolol as well as low-dose lisinopril; he has struggled with some hypotension with systolics noted in the 80s at random medical visits and he reports at times they have been even lower but he has fortunately never been symptomatic. As such, I am hesitant to increase his lisinopril or metoprolol further out of concern for possible aggravation of hypotension; additionally, the addition of an MRA may cause similar issues. We did discuss the addition of an SGLT2 inhibitor such as Farxiga. He has a history of testicular cancer having one of his testicles removed in 1978; since then he has had some issues with urinary retention and double voiding, though no UTIs. He will be seeing his urologist on 02/07/2025 and I have asked him to discuss the addition of Farxiga at that time; the patient agrees to notify us of the urologist's recommendations after his visit. We discussed the potential adverse effects of an SGLT2 inhibitor and he is aware that this may increase his risk for urinary tract infections or urogenital skin infections; should we ultimately start this medication he will notify us of any concerning symptoms. We discussed risk reduction through lifestyle modifications including healthy diet, routine exercise, and weight management. We reviewed heart failure management including low sodium diet, symptom surveillance, daily weights, and medication compliance. I've asked the patient to call if they develop worsening symptoms of heart failure such as increased shortness of breath, new or worsening cough, increased swelling in the legs or ankles, or weight gain of more than 2 pounds in one day or 4 pounds in one week. Tachycardia 11/04/2021 Seizure ([facility] V24, CMS/[facility] V28) 02/23/2021 Mixed hyperlipidemia 05/22/2020 Assessment & Plan (01/27/2025 11:12 AM EDT): The patient's most recent lipid panel was completed on 11/24/2024 showing an LDL of 90; his atorvastatin was subsequently increased to 40 mg daily with plan to recheck a lipid panel in February 2025. Patient is aware that an order is already in place for this and he will have this done as requested. Will continue to readdress this once these results are reviewed. Pulmonary emphysema ([facility] V24, [facility] V28) 0 05/22/2020 Overview (03/28/2024): Last Assessment & Plan: No significant shortness of breath at rest or with exertion though he does have faint end expiratory wheezes; he does admit that these are worse at times. He will continue to follow-up with pulmonology as recommended. Vitamin D deficiency 11/20/2017 Chronic obstructive pulmonar y disease (COPD) ([facility] V24, [facility] V28) 11/11/2017 Insomnia 11/05/2017 Ejection fraction < 50% 08/21/2017 Overview (03/28/2024): Last Assessment & Plan: Appears euvolemic, has no ischemic or heart failure symptoms. I will update an echocardiogram. Internal and external prolapsed hemorrhoids 11/2017 Depression 04/14/2017 Colon polyps 03/27/2017 Atrophic gastritis 06/26/2016 Erosive esophagitis 06/26/2016 Anxiety about health 06/06/2015 Marijuana use 06/06/2015 Encounters Date Type Department Care Team Description 02/17/2025 Results Follow-Up Internal Medicine - [place] [address] [facility] [address] [place] [phone] Janet Chaudhry MD 02/16/2025 8:50 AM EST - 02/16/2025 11:59 PM EST Hospital Encounter [facility] Xray [address] [place] [phone] Evelyn Roach, JACK SETTER Dysphagia, unspecified type; Vomiting without nausea, unspecified vomiting type Discharge Disposition: Home or Self Care 02/07/2025 Lab Requisition [facility] - Main Lab [address] [facility] [place] [phone] Robi Hinojosa PA Elevated prostate specific antigen (PSA); Benign prostatic hyperplasia with lower urinary tract symptoms 01/27/2025 9:40 AM EDT [facility] - [address] [place] [phone] Luba Duenas NP Cardiomyopathy, unspecified type (CMS/HCC V24, CMS/HCC V28) (Primary Dx); Chronic systolic congestive heart failure (CMS/HCC V24, CMS/HCC V28); Dyspnea on exertion; Mixed hyperlipidemia; Claudication (CMS/HCC V24); Nocturnal leg cramps 01/27/2025 Telephone [facility] - [address] [place] [phone] Jr Guerra MD 01/12/2025 9:45 AM EDT Office Visit Pulmonology - [place] [address] [place] [phone] Aleksey Ruth MD Centrilobular emphysema (CMS/HCC V24, CMS/HCC V28) (Primary Dx); Squamous cell carcinoma of right lung ([facility]/HCC V24, CMS/HCC V28) 01/05/2025 Telephone [facility] - [address] [place] [phone] Jr Guerra MD 12/26/2024 Telephone [facility] - [address] [place] [phone] Jr Guerra MD 12/22/2024 Telephone [facility] - [address] [place] [phone] Amelia Escobar MA 12/21/2024 11:00 AM EDT Ancillary Procedure Pulmonology - [place] [address] [place] [phone] Centrilobular emphysema ([facility] V24, [facility] V28); Small cell lung cancer in adult ([facility] V24, [facility] V28) 11/24/2024 12:00 PM EDT Lab Draw Station - [address] [facility] [address] [place] [phone] Primary cardiomyopathy ([facility] V24, [facility] V28) (Primary Dx); Dysphagia, unspecified type; Vomiting without nausea, unspecified vomiting type; Pain in both lower extremities 11/24/2024 11:30 AM EDT Office Visit Internal Medicine - [place] [address] [facility] [address] [place] [address] Janet Chaudhry MD Dysphagia, unspecified type (Primary Dx); Vomiting without nausea, unspecified vomiting type; Pain in both lower extremities 11/24/2024 Telephone [facility] [address] [facility] [address] [place] [phone] Jr Guerra MD from Last 3 Months Immunizations Immunization Administration Dates Next Due Zoster recombinant (Shingrix) [...] astritis Chronic obstructive pulmonar y disease (COPD) ([facility] V24, [facility] V28) 11/11/2017 DX:Chronic obstructi ve pulmonary disease (COPD) ([facility]) Colon polyps 03/27/2017 DX:Colon polyps Depression 04/14/2017 [...] deficiency 11/20/2017 DX:Vitamin D deficiency Lung cancer ([facility] V24, CM S/[facility] V28) DX:Lung cancer (HCC) Brain cancer ([facility] V24, C [facility] V28) DX:Brain cancer (HCC) Hypertension DX:Hypertension CHF (congestive heart failur e) ([facility] V24, [facility] V28) DX:CHF (congestive heart fa ilure) (HCC) Brain metastases 10/04/2016 DX:Brain metast ases Chronic obstructive pulmonar y disease (COPD) ([facility] V24, [facility] V28) 11/11/2017 Seizure ([facility] V24, [facility] V28) 02/23/2021 Family History Medical History Relation Name Comments Alcohol abuse Father CABG Mother Heart attack Mother Relation Name Status Comments Father Mother Sister Social History Tobacco Use Types Packs/Day Years Used Date Smoking Tobacco: Former Cigarettes Q uit: 12/12/2014 Passive Smoke Exposure: Past Smokeless Tobacco: Never Tobacco Cessation:Counseling Given: Not [...] Sign Reading Time Taken Comments Blood Pressure 120/60 01/27/2025 9:43 AM EDT Pulse 87 01/27/2025 9:43 AM EDT Temperature 36.1 C (97 F) 01/12/2025 9:38 AM EDT Respiratory Rate 20 01/12/2025 9:38 AM EDT Oxygen Saturation 99% 01/27/2025 9:43 AM EDT Inhaled Oxygen Concentration - - Weight 65.8 kg (145 lb) 01/27/2025 9:43 AM EDT Height 170.2 cm (5' 7 ) 01/27/2025 9:43 AM EDT Body Mass Index 22.71 01/27/2025 9:43 AM EDT Plan of Treatment Upcoming Encounters Date Type Department Care Team (Late st Contact Info) Description 03/13/2025 8:40 AM EST [facility] - [facility] [address] [facility] [address] [place] [address] Luba Duenas NP [address] [place] [address] [address] [place] [address] 03/29/2025 1:30 PM EST Ancillary Procedure [facility] - [facility] [address] [facility] [address] [place] [phone] 04/18/2025 9:45 AM EST Office Visit Pulmonology - [place] [address] [facility] [address] [place] [phone] Aleksey Ruth MD [address] [place] [phone] 06/14/2025 9:30 AM EST Office Visit [facility] Hematology Oncology [address] [place] [phone] Katelyn Flynn MD [address] [place] [address] Health Maintenance Due Date Last Done Comments HIV Screening 03/20/2022 Hepatitis C Screening 03/20/2022 Lung Cancer Screening (Low Dose CT) 03/20/2022 Social Influencers of Health Screening 03/20/2022 Medicare Annual Wellness Visit 01/30/2024 01/29/2023 Depression Screening 04/13/2024 COVID-19 Vaccine ( season) 2024 12/16/2023, 01/07/2023, 12/26/2021, Additional history exists Influenza Vaccine (#1) 2024 , 12/23/2022, 01/10/2022, Additional history exists Hypertension/CHF/CAD Annual BMP Blood Test 12/14/2025 12/14/2024, 07/14/2024, 09/03/2023, Additional history exists Cholesterol Screening (Lipid Panel) 11/24/2029 11/24/2024, 07/14/2024, 09/03/2023, Additional history exists DTaP,Tdap,and Td Vaccines (2 - Td or Tdap) 08/03/2033 08/04/2023 Colorectal Cancer Screening: Colonoscopy 07/21/2034 07/21/2024 Zoster Vaccines Completed 05/16/2019, 12/28/2017 Pneumococcal Vaccine: 50+ Years Completed 01/10/2022, 12/28/2017 RSV Immunization Adult Patients Completed 04/16/2023 MMR Vaccines Aged Out 08/04/2023 No longer eligi ble based on patient's age to complete this topic HIB Vaccines Aged Out No longer eligi [...] type Vomiting without nausea, unspecified vomiting type PROSTATE SPECIFIC ANTIGEN DIAGNOSTIC Routine 02/07/2025 11:13 AM EDT Elevated prostate specific antigen (PSA) Benign prostatic hyperplasia with lower urinary tract symptoms PULMONARY FUNCTION TESTING Routine 12/21/2024 11:17 AM EDT Centrilobular emphysema (CMS/HCC V24, CMS/HCC V28) Small cell lung cancer in adult (CMS/HCC V24, CMS/HCC V28) EXTERNAL CARDIAC MRI Routine 12/19/2024 11:09 AM EDT BASIC METABOLIC PANEL Routine 12/14/2024 3:39 PM EDT Dilated cardiomyopathy (CMS/HCC V24, CMS/HCC V28) LIPID PANEL WITH REFLEX TO DIRECT LDL Routine 11/24/2024 11:51 AM EDT Primary cardiomyopathy (CMS/HCC V24, CMS/HCC V28) VITAMIN D 25 HYDROXY Routine 11/24/2024 11:51 AM EDT Dysphagia, unspecified type Vomiting without nausea, unspecified vomiting type Pain in both lower extremities VITAMIN B12 Routine 11/24/2024 11:51 AM EDT Dysphagia, unspecified type Vomiting without nausea, unspecified vomiting type Pain in both lower extremities MAGNESIUM Routine 11/24/2024 11:51 AM EDT Dysphagia, unspecified type Vomiting without nausea, unspecified vomiting type COLONOSCOPY Routine 07/21/2024 11:06 AM EDT Tubular adenoma from Last 3 Months or Most Recently Relevant to Health Maintenance Results * XR Barium Swallow with Video [...] Signed Date: 02/17/2025 17:16 ET Workstation ID: [id number] Transcribed By: Self Edit Transcribed Date: 02/16/2025 11:42 ET Resident/PA/PRODUCTION OR PLANT ENGINEER: Arely Lamb Narrative 02/17/2025 5:16 PM EST [...] Signed Date: 02/17/2025 17:16 ET Workstation ID: [id number] Transcribed By: Self Edit Transcribed Date: 02/16/2025 11:42 ET Resident/PA/PRODUCTION OR PLANT ENGINEER: Arely Lamb us Janet Chaudhry MD IMG FLUOROSCOPY PROCEDURES Fin al Result * Prostate specific antigen diagnostic (02/07/2025 11:13 AM EDT) PSA 1.67 0.00 - 4.00 ng/mL LAB CHEMISTRY METHOD 02/07/2025 3:49 PM EDT [facility] Blood Venous blood specimen / Unknown 02/07/2025 11:13 AM EDT 02/07/2025 3:04 PM EDT Narrative [facility] - 02/07/2025 3:49 PM EDT The Siemens Advia Centaur Chemiluminescent Immunoassay is used. Results obtained with different assay methods or kits cannot be used interchangeably. Results cannot be interpreted as absolute evidence of the presence or absence of malignant disease. us Robi ALVARADO LAB BLOOD ORDERABLES Final Resul t [facility] [address] [place] [address], [place] [phone] * Pulmonary function testing: Carbon Monoxide Diffusing Capacity, Helium Dilution Lung Volumes, Flow Volume Loop, Spirometry with Bronchodilator, Vital Capacity Test, Spirometry (12/21/2024 11:17 AM EDT) Impressions Sharif Lazo MD - 12/21/2024 11:17 AM EDT 12/21/2024 Spirometry FEV1 is 55% predicted, FVC is 57% predicted, FEV1/FC ratio slight decrease, no improvement in FEV1 post bronchodilators Lung volume TLC is decreased at 60% predicted, RV/TLC is 100% predicted Diffusion DLCO is 57% predicted, DLCO/VA is 110% predicted In summary, this pulmonary function test shows mostly moderate restrictive changes. us Aleksey Ruth MD PFT ORDERABLES Final Result * External Cardiac MRI (12/19/2024 11:09 AM EDT) Anatomical Region Laterality Modality Cardiac Diagnost ic us Historical Provider [facility] JAE Final Result * Basic metabolic panel (12/14/2024 3:39 PM EDT) Sodium 137 133 - 145 mmol/L LAB CHEMISTRY METHOD 12/14/2024 5:25 PM [facility] Potassium 3.9 3.5 - 5.5 mmol/L LAB CHEMISTRY METHOD 12/14/2024 5:25 PM [facility] Chloride 106 96 - 110 mmol/L LAB CHEMISTRY METHOD 12/14/2024 5:25 PM [facility] CO2 26 21 - 32 mmol/L LAB CHEMISTRY METHOD 12/14/2024 5:25 PM [facility] Anion Gap 5 3 - 11 LAB CHEMISTRY METHOD 12/14/2024 5:25 PM [facility] Glucose 89 70 - 100 mg/dL LAB CHEMISTRY METHOD 12/14/2024 5:25 PM [facility] BUN 17 5 - 25 mg/dL LAB CHEMISTRY METHOD 12/14/2024 5:25 PM [facility] Creatinine 0.84 0.70 - 1.30 mg/dL LAB CHEMISTRY METHOD 12/14/2024 5:25 PM [facility] eGFR 99 >=60 mL/min/1. 73m2 LAB CHEMISTRY METHOD 12/14/2024 5:25 PM [facility] Comment:Calculation based on the Chronic Kidney Disease Epidemiology Collaboration (CKD-EPI) equation refit without adjustment for race. BUN/Creatinine Ratio 20.2 LAB CHEMISTRY METHOD 12/14/2024 5:25 PM [facility] Calcium 9.1 8.5 - 10.5 mg/dL LAB CHEMISTRY METHOD 12/14/2024 5:25 PM EDT [facility] Blood Venous blood specimen / Unknown Venipuncture / Unknown 12/14/2024 3:39 PM EDT 12/14/2024 4:53 PM EDT us Jr Guerra MD LAB BLOOD ORDERABLES Final Resu lt [facility] [address] [place] [address], [place] [phone] * Lipid panel with reflex to direct LDL (11/24/2024 11:51 AM EDT) Cholesterol 168 0 - 200 mg/dL LAB CHEMISTRY METHOD 11/24/2024 4:42 PM EDT [facility] Triglycerides 76 0 - 150 mg/dL LAB CHEMISTRY METHOD 11/24/2024 4:42 PM EDT [facility] HDL 63 >=40 mg/dL LAB CHEMISTRY METHOD 11/24/2024 4:42 PM EDT [facility] LDL Calculated 90 0 - 100 mg/dL LAB CHEMISTRY METHOD 11/24/2024 4:42 PM EDT [facility] Comment:Estimated LDL Calcul ated using equation: Total cholesterol - HDL cholesterol - (Triglycerides/5) VLDL Cholesterol Perfecto 15.2 mg/dL LAB CHEMISTRY METHOD 11/24/2024 4:42 PM EDT [facility] Non HDL Chol. (LDL+VLDL) 105 <145 mg/dL LAB CHEMISTRY METHOD 11/24/2024 4:42 PM EDT [facility] Chol/HDL Ratio 2.7 0.0 - 4.4 LAB CHEMISTRY METHOD 11/24/2024 4:42 PM [facility] Blood Venous blood specimen / Unknown Venipuncture / Unknown 11/24/2024 11:51 AM EDT 11/24/2024 11:51 AM EDT Jr Guerra MD LAB BLOOD ORDERABLES Final Resu lt Performing Organization Address [facility]/ZIP Co de Phone Number [facility] [address] [place] [address], [place] [phone] * Vitamin D 25 hydroxy (11/24/2024 11:51 AM EDT) [facility] Vit D, 25-Hydroxy 33.4 30.0 - 80.0 ng/mL LAB CHEMISTRY METHOD 11/24/2024 5:44 PM EDT [facility] Blood Venous blood specimen / Unknown Venipuncture / Unknown 11/24/2024 11:51 AM EDT 11/24/2024 11:51 AM EDT Janet Chaudhry MD LAB BLOOD ORDERABLES Final Res ult Performing Organization Address [facility] Co de Phone Number [facility] [address] [place] [address], [place] [phone] * Magnesium (11/24/2024 11:51 AM EDT) [facility] Magnesium 2.0 1.9 - 2.6 mg/dL LAB CHEMISTRY METHOD 11/24/2024 4:18 PM EDT [facility] Blood Venous blood specimen / Unknown Venipuncture / Unknown 11/24/2024 11:51 AM EDT 11/24/2024 11:51 AM EDT Janet Chaudhry MD LAB BLOOD ORDERABLES Final Res ult Performing Organization Address [facility]/ZIP Co de Phone Number [facility] [address] [place] [address], [place] [phone] * (ABNORMAL) Vitamin B12 (11/24/2024 11:51 AM EDT) [facility] Vitamin B-12 1,860(H) 250 - 900 pcg/mL LAB CHEMISTRY METHOD 11/24/2024 4:42 PM EDT [facility] Blood Venous blood specimen / Unknown Venipuncture / Unknown 11/24/2024 11:51 AM EDT 11/24/2024 11:51 AM EDT us Janet Chaudhry MD LAB BLOOD ORDERABLES Final Res ult [facility]) [facility] [address] [place] [address], [place] [phone] * COLONOSCOPY Anesthesia - MAC; [facility] ENDOSCOPY (07/21/2024 11:06 AM EDT) Anatomical Region Laterality Modality Endoscopy 07/21/2024 10:3 7 AM EDT Impressions 07/21/2024 11:06 AM EDT - One 11 mm polyp in the sigmoid colon, removed with a hot snare. Resected and retrieved. - One 6 mm polyp in the descending colon, removed with a cold snare. Resected and retrieved. - Two 5 to 6 mm polyps in the cecum, removed with a cold snare. Resected and retrieved. - The examination was otherwise normal on direct and retroflexion views. Recommendation: - Await pathology results. - Repeat colonoscopy in 3 years for surveillance. Narrative 07/21/2024 11:06 AM EDT [facility] GI Patient Name: Chet Whyte Procedure Date: 07/21/2024 10:37 AM Date of : 1965 Age: 59 Room: ROOM 15 Gender: Male Note Status: Finalized Attending MD: Pradeep Somers MD, Procedure Date No Time: 07/21/2024 Procedure: Colonoscopy Indications: High risk colon cancer surveillance: Personal history of colonic polyps Providers: Pradeep Somers MD Referring MD: Kash Cantor MD Medicines: Propofol per Anesthesia Complications: No immediate complications. Estimated Blood Loss: Estimated blood loss: none. Procedure: Pre-Anesthesia Assessment: - ASA Grade Assessment: II - A patient with mild systemic disease. After I obtained informed consent, the scope was passed under direct vision. Throughout the procedure, the patient's blood pressure, pulse, and oxygen saturations were monitored continuously.The Olympus Pediatric Colonoscope was introduced through the anus and advanced to the cecum, identified by appendiceal orifice and ileocecal valve. The colonoscopy was performed without difficulty. The patient tolerated the procedure well. The quality of the bowel preparation was good. Findings: The perianal and digital rectal examinations were normal. An 11 mm polyp was found in the sigmoid colon. The polyp was pedunculated. The polyp was removed with a hot snare. Resection and retrieval were complete. A 6 mm polyp was found in the descending colon. The polyp was sessile. The polyp was removed with a cold snare. Resection and retrieval were complete. Two sessile polyps were found in the cecum. The polyps were 5 to 6 mm in size. These polyps were removed with a cold snare. Resection and retrieval were complete. The exam was otherwise without abnormality on direct and retroflexion views. Procedure Code(s): --- Professional --- 89377, Colonoscopy, flexible; with removal of tumor(s), polyp(s), or other lesion(s) by snare technique Diagnosis Code(s): --- Professional --- D12.5, Benign neoplasm of sigmoid colon Z86.010, Personal history of colonic polyps D12.4, Benign neoplasm of descending colon D12.0, Benign neoplasm of cecum CPT copyright 2021 [employer]. All rights reserved. The codes documented in this report are preliminary and upon didactic program in dietetics director review may be revised to meet current compliance requirements. Pradeep Somers MD 07/21/2024 11:06:28 AM This report has been signed electronically.Pradeep Somers MD Number of Addenda: 0 Note Initiated On: 07/21/2024 10:37 AM Scope In: Scope Out: Endoscopy Department at [facility] - [address] [place] [phone] Procedure Note Pradeep Somers MD - 07/21/2024 [facility] GI Patient Name: Chet Whyte Procedure Date: 07/21/2024 10:37 AM Date of [...] retroflexion views. Procedure Code(s): --- Professional --- 02197, Colonoscopy, flexible; with removal of tumor(s), polyp(s), or other lesion(s) by snare technique Diagnosis Code(s): --- Professional --- D12.5, Benign neoplasm of sigmoid colon Z86.010, Personal history of colonic polyps D12.4, Benign neoplasm of descending colon D12.0, Benign neoplasm of cecum CPT copyright 2020 [employer]. All rights reserved. The codes documented in this report are preliminary and upon didactic program in dietetics director reviewmay be revised to meet current compliance requirements. Pradeep Somers MD 07/21/2024 11:06:28 AM This report has been signed electronically.Pradeep Somers MD Number of Addenda: 0 Note Initiated On: 07/21/2024 10:37 AM Scope In: Scope Out: Endoscopy Department at [facility] - [address] [place] [phone] IMPRESSION: - One 11 mm polyp in [...] Repeat colonoscopy in 3 years for surveillance. us Kash Cantor MD GI~PROCEDURE ORDERABLES Final Re sult from Last 3 Months or Most Recently Relevant to Health Maintenance Insurance [employer] MEDICARE Member Subscriber Plan / Payer (Ef fective 2023-Present) Name:CHET WHYTE Relation to Subscriber:Self Name:Chet Whyte Jr. Payer ID:[id number] Group ID:[id number] Type:Not on file Address: [place] [address] [place] [address] Care Teams Furniture Dipper Relationship Specialty Start Date End Date Janet Chaudhry MD [address] [place] [address] [address] [place] [address] PCP - General Internal Medicine 02/15/18
--- OUTSIDE RECORDS SUMMARY | 2025-02-20 11:41 | XMS_ITS | Clinical Summary ---
Author Organization [facility] Address [address] [place] [address] Care Team Providers Care Per Diem Registered Nurse Name Role Phone Janet Chaudhry MD Primary Care Provider [phone] Allergies Active Allergy Reactions Criticality Noted Date [...] 81 01/13/2024 11:20 AM EDT Temperature 37.1 C (98.7 F) 01/13/2024 11:20 AM EDT Respiratory Rate - - Oxygen Saturation 100% [...] series) 09/22/2020 08/25/2020, 08/04/2020 Influenza Vaccine (#1) 2024 0, 12/02/2018, 12/25/2017, Additional history exists RSV Adult > 60+ Yrs or (1 - 1-dose 75+ series) 2038 Shingrix-Zoster Vaccine Completed 05/16/2019, 12/28 Hepatitis B Vaccines Aged Out No long er eligible based on patient's age to complete this topic RSV Ped < 20 months Aged Out No longe r eligible based on patient's age to complete this topic Care Teams Per Diem Registered Nurse Relationship Specialty Start Date End Date Janet Chaudhry MD [address] [facility] [address] [place] [phone] PCP - General Internal Medicine 05/12/16
--- OUTSIDE RECORDS SUMMARY | 2025-02-20 11:41 | XMS_ITS | Encounter Summary ---
Author Organization [facility] Address [address] [place] [address] Care Team Providers Care Rice Farmworker Name Role Phone Janet Chaudhry MD Primary Care Provider [phone] Reason for Visit * Reason Onset Date Comments Medication 01/27/2025 Encounter Details Date Type Department Care Team (Late st Contact Info) Description 01/27/2025 Telephone [facility] Associates - [facility] [address] [facility] [address] [place] [phone] Jr Guerra MD [address] [place] [address] [address] [place] [phone] Social History Tobacco Use Types Packs/Day Years [...] on file documented as of this encounter Ordered Prescriptions Prescription Sig Dispense Quantity Refills Last Filled Start Date End Date dapagliflozin propanediol (FARXIGA) 10 mg tablet Take 1 tablet (10 mg total) by mouth 1 (one) time each day. 30 each 02/07/2025 02/20/2025 documented in this encounter Progress Notes * Luba Fam NP - 02/20/2025 10:28 AM ESTAddended by: SRIDHAR FAM on: 02/20/2025 10:28 AM Modules accepted: Orders * Luba Fam NP - 02/20/2025 10:25 AM EST I called and spoke to the patient regarding him stopping Farxiga; he states that he is unable to tolerate it because of urinary frequency as below. He was taking in the morning but still throughout the night he was voiding frequently; he tried it for about 2 weeks and it did not get any better withtime. He feels as though he is going crazy and hurting himself by continuing to take it because he is unable to sleep and his quality of life is subsequently suffering. He is very upset. I verbalizedunderstanding of this and of his frustration; support and encouragement given. He agrees to call for any worsening heart failure symptoms or significant weight gain; also, if symptoms do not improve once medication is stopped, he increase to notify his PCP office out of concern for possible underlying urinary tract infection. * Ramona Nunes RN - 02/20/2025 9:59 AM EST Called pt back this AM. States has been urinating at night, frequently, and he is not able to get any sleep. Has had no weight increase, has no s/s of fluid retention, no worsening SOB. States he is not taking the Farxiga any longer. * Caron Suresh MA - 02/20/2025 8:31 AM EST Patient called stating he can no longer take Farxiga. He stated that he is constantly waking up to go to the bathroom. He stated he is getting little to no sleep because he has insomnia and the constant waking up to go to the bathroom is not helping. He also stated that today is his last day takingthis medication because he can't keep doing this to himself. Please advise * Mattie Galeas RN - 02/07/2025 1:52 PM EDTAddended by: MATTIE GALEAS on: 02/07/2025 01:52 PM Modules accepted: Orders * Mattie Galeas RN - 02/07/2025 1:45 PM EDT Spoke w/pt. Pt stated that he has not received the script for [facility]. He received a letter inthe mail for [facility] in [place], but pt stated that he cannot read in vietnamese and has no idea what it says. Pt [facility] Farxiga [facility]. Resent script for 30 days 0 rf to see how patient tolerates. Pt verbalized understanding. * Mattie Galeas RN - 02/07/2025 1:30 PM EDT Left voicemail for patient to call back. * Caron Suresh MA - 02/07/2025 1:20 PM EDT Patient called stating he was seen by urology today and they said it was okay for him to start Farxiga 10 mg. He is asking that it be sent to the [facility] pharmacy, at [address] [place] [address]. It is listed in his chart. * Mattie Galeas RN - 01/27/2025 4:44 PM EDT Spoke w/pt. Pt stated that his insurance is willing to cover Farxiga 10 mg. * Eddie Guerin - 01/27/2025 4:16 PM EDT Patient returning call. * Ramona Nunes RN - 01/27/2025 4:06 PM EDT Called pt back this PM and made aware of responses below from Rosalie Fam and Dr. Guerra. States he will call the insurance company back on Thursday to find out if they will cover the 10mg dosing of Farxiga and will call back with an update. Is aware he would still need to f/u with urology and discuss this with them. Is aware we will be awaiting the urologist's recommendations. * Luba Fam NP - 01/27/2025 3:01 PM EDT Yes, I would like to start him on 10 mg if we do start the Farxiga. Could he please check to see ifthis dose is covered as it would be the appropriate dose for guideline directed medical therapies for systolic heart failure. However, he still needs to discuss this with his urologist; I will await urology's recommendations. He will see urology later this month. * Krystal Killian - 01/27/2025 2:28 PM EDT Patient called and stated he wanted to give an fyi that he called his insurance, and they said theywill cover the Farxiga. He said they will cover 5 milligrams starting off. Patient's phone number is [phone]. documented in this encounter Plan of Treatment Upcoming Encounters Date Type Department Care Team (Late st Contact Info) Description 03/13/2025 8:40 AM EST Office Visit [facility] Cardiology [facility] [address] [facility] [address] [place] [address] Luba Fam NP [address] [place] [address] Dr [address] [place] [address] 03/29/2025 1:30 PM EST Ancillary Procedure [facility] - [facility] [address] [facility] [address] [place] [phone] 04/18/2025 9:45 AM EST Office Visit Pulmonology - [place] 175 [facility] 200 [place] [phone] Aleksey Ruth MD [address] [place] [phone] 06/14/2025 9:30 AM EST Office Visit [facility] Hematology Oncology [address] [place] [phone] Katelyn Flynn MD [address] [place] [address] documented as of this encounter Visit Diagnoses Not on filedocumented in this encounter Discontinued Medications Medication Sig Discontinue Reason Start Date End Da te dapagliflozin propanediol (FARXIGA) 10 mg tablet Take 1 tablet (10 mg total) by mouth 1 (one) time each day. Reorder 01/27/2025 02/07/2025 dapagliflozin propanediol (FARXIGA) 10 mg tablet Take 1 tablet (10 mg total) by mouth 1 (one) time each day. Side effects 02/07/2025 02/20/2025 documented as of this encounter Care Teams Rice Farmworker Relationship Specialty Start Date End Date Janet Chaudhry MD 175 [facility] 200 [place] [phone] PCP - General Internal Medicine 02/15/18 documented as of this encounter
--- OUTSIDE RECORDS SUMMARY | 2025-02-20 11:41 | XMS_ITS | Encounter Summary ---
Author Organization [facility] Address [address] [place] [address] Care Team Providers Care Boom Boss Name Role Phone Janet Chaudhry MD Primary Care Provider [phone] Encounter Details Date Type Department Care Team (Late Contact Info) Description 07/19/2024 Telephone Internal Medicine - [place] 175 [facility] [address] [place] [phone] Janet Chaudhry MD [address] [place] [phone] Social History Tobacco Use Types Packs/Day Years [...] Description 03/13/2025 8:40 AM EST Office Visit [facility] Cardiology Associates - [facility] [address] [facility] [address] [place] [address] Luba Duenas NP [place] [address] 03/29/2025 1:30 PM EST Ancillary Procedure [facility] - [facility] [address] 300 [facility] 101 [place] [phone] 04/18/2025 9:45 AM EST Office Visit Pulmonology - [place] 175 [facility] [address] [place] [phone] Aleksey Ruth MD [address] [place] [phone] 06/14/2025 9:30 AM EST Office Visit [facility] Hematology Oncology [address] [place] [phone] Katelyn Flynn MD [address] [place] [address] documented as of this encounter Visit Diagnoses Not on filedocumented in this encounter Care Teams Boom Boss Relationship Specialty Start Date End Date Janet Chaudhry MD [address] [phone] PCP - General Internal Medicine 02/15/18 documented as of this encounter
--- OUTSIDE RECORDS SUMMARY | 2025-02-20 11:41 | XMS_ITS ---
Author Name [facility] Organization Unknown Care Team Organization Name Specialty Phone Email Start Date End Da te [facility] 02/18/2022 11/30/19 24
[2025-02-20 13:23] LABS: MANUAL DIFF FLAG NO
[2025-02-20 13:45] LABS: Hematocrit 45.7 % (42.0-52.0); Hemoglobin 15.6 g/dl (14.0-18.0); Imm Gran Abs Auto 0.02 X10*3/uL (0.00-0.03); Imm Gran Pct Auto 0.3 % (0.0-0.4); Lymphocytes Absolute Auto 2.0 X10*3/uL (1.2-4.9); Mean Corpuscular HGB Conc 34.1 g/dl (31.0-36.0); Mean Corpuscular Hemoglobin 31.3 pg (27.0-33.0); Mean Corpuscular Volume 91.8 fL (80.0-98.0); NRBC Abs Auto 0.000 X10*3/uL (0.0-0.012); NRBC Pct Auto 0.0 /100WBC (0.0-0.2); Platelet Count 188 X10*3/uL (160-400); Red Blood Count 4.98 X10*6/uL (4.60-5.80); White Blood Count 7.6 X10*3/uL (4.8-10.8)
[2025-02-20 14:04] LABS: Alanine Aminotransferase 39 U/L (0-40); Albumin Level 4.7 g/dL (3.5-5.0); Alkaline Phosphatase 74 U/L (39-117); Anion Gap 11 (12-20); Aspartate Amino Transferase 32 U/L (5-37); Blood Urea Nitrogen 15 mg/dL (9-16); Calcium 9.5 mg/dL (8.4-10.2); Carbon Dioxide 26 mmol/L (22-29); Chloride 107 mmol/L (96-108); Estimated Glomerular Filt Rate > 60; Potassium 4.8 mmol/L (3.3-5.1); Sodium 139 mmol/L (135-145); Total Protein 7.3 g/dL (6.5-8.0)
[2025-02-26 13:19] LABS: Vitamin D 25-OH, D2 <4 ng/mL; Vitamin D 25-OH, D3 33 ng/mL; Vitamin D 25-OH, Total 33 ng/mL (30-100)
== END 2025-02-20 10:02 | disposition home or self-care (01) ==
LOC: HO.HKASLDS 10:01
PROVIDERS: PCP Internal Medicine; Visit Provider Nurse Practitioner Family
DX: R56.9 Unspecified convulsions (principal)
CPT/HCPCS: 36415; 80053; 82306; 85025

== ENCOUNTER 2025-03-07 14:27 | Outpatient (AMB) | payer OTHER, SELFPAY ==
--- OUTSIDE RECORDS SUMMARY | 2024-01-13 09:51 | XMS_ITS | Encounter Summary ---
Author Organization [facility] Address [address] [place] [address] Care Team Providers Care Director Of Strategy & Mobile Name Role Phone Janet Chaudhry MD Primary Care Provider [phone] Encounter Details Date Type Department Care Team (Late st Contact Info) Description 01/13/2024 10:51 AM EDT Hospital Encounter TH HISTORIC ENCOUNTERS EASTERN CONVERSION ONLY Katelyn Flynn MD [address] [place] [phone] Social History Tobacco Use Types Packs/Day Years [...] HPI: Patient is a very pleasant 58-year-old Georgian-speaking man, who diagnosed with locally advanced squamous [...] Patient with a history of more than 85-biwa-seyy smoking, diagnosed with squamous cell carcinoma ofright [...] LUNG 58-year-old gentleman who has history of 03-vtuw-movn smoking history, diagnosed with locally advanced squamous [...] Description 03/13/2025 8:40 AM EST Office Visit [facility] Cardiology [facility] 102 300 [facility] 102 [place] [address] Luba Duenas NP [address] [place] [address] Dr Prince [address] [place] [phone] 03/17/2025 12:00 PM EST Office Visit Internal Medicine - [place] 175 [facility] 200 [place] [phone] Janet Chaudhry MD [address] [place] [phone] 03/29/2025 1:30 PM EST Ancillary Procedure [facility] 101 300 [facility] 101 [place] [address] 04/18/2025 9:45 AM EST Office Visit Pulmonology - [place] 175 [facility] 200 [place] [phone] Aleksey Ruth MD [address] [place] [phone] 06/14/2025 9:30 AM EST Office Visit [facility] Hematology Oncology [address] [place] [phone] Katelyn Flynn MD [address] [place] [address] documented as of this encounter Visit Diagnoses Not on filedocumented in this encounter Care Teams Director Of Strategy & Mobile Relationship Specialty Start Date End Date Janet Chaudhry MD [address] [place] [phone] PCP - General Internal Medicine 02/15/18 documented as of this encounter
[2025-03-07 14:59] VITALS: BP 90/60; PULSE 96; O2SAT 96; BMI 21.9
--- NOTE | 2025-03-07 14:59 | MHC.OFFVIS ---
Vital Signs 03/07/25 14:59 Height 5 ft 7 in Weight 140 lb BMI 21.9 BP 90/60 Blood Pressure Location Rt brachial Position Sitting Pulse 96 Pulse Source Pulse Oximeter Pulse Oximetry (%) 96 Oxygen Delivery Method Room Air Intake Visit Reasons: Follow up Intake Note: Patient presents 6 month follow up for seizures/sleep Dinker Required: No Accompanied by: Self / Same As Patient Allergies Penicillins Allergy (Mild, Verified 08/23/24 11:34) Unknown Medication List - Last Reconciled 03/07/25 by MINA Fox albuterol sulfate 90 mcg/actuation (Ventolin HFA) inhalation albuterol sulfate 2.5 mg inhalation Q4H PRN ascorbate calcium (vitamin C) 500 mg orally 3 x's per week (Thu-Thu-Thu); 28 days aspirin 81 mg PO DAILY atorvastatin 20 mg PO BEDTIME cholecalciferol (vitamin D3) 50 mcg PO DAILY 30 days ferrous sulfate 325 mg orally 3 x's per week (Thu-Thu-Thu); take w/ vit C 28 days gabapentin 100 - 300 mg (1 - 3 x 100 mg) PO BEDTIME 30 days levetiracetam ER 2,000 mg (4 x 500 mg) PO Q24H 30 days magnesium oxide 400 mg PO BEDTIME 90 days omeprazole 20 mg PO DAILY oxycodone mg PO riboflavin (vitamin B2) 400 mg PO DAILY 90 days simvastatin 20 mg PO BEDTIME sucralfate 1 g PO ONCE tamsulosin 0.4 mg PO DAILY HPI Comments Details: 60-yr-old male presents for f/u visit of seizure and sleep issues and RLS. Pt reports cardiology (Dr. Guerra [facility]) recently started him on Farxiga, however he had to stop this due to all aday and night polyurea. He is also being f/b GI s/p colonoscopy showing tubular adenomas, requiring colonoscopy bleed surveillance every 3 years. His intevral labs were reassuring- no anemia, ferritin WNL. His B-12 level is elevated, 1800 H at [facility] in Nov 2024. Vit D 33- low normal. Denies any interval seizure activity. He is compliant with Keppra ER 500mg- 4 tabs QHS He notes sometimes he can have difficulty swallowing the Keppra tabs, and other foods. He had a recent ER eval for this- states work-up was reassuring. Denies thyroid issues. He tries to alternate solids and liquids. Denies recent strong headaches, just an occasional mild headache. He did start the vit D and ferrous sulfate supplement- she is tolerating well Pt recently stopped the Trazodone, as it was not helping. He states he is now trying to sleep without medication. He is complaint with Gabapentin 100mg daily at bedtime for sleep and RLS s/s. He states he is sleeping at least 3 hours a night. Denies daytime naps. He does have BLE soreness and twitching at rest. As well as nocturia- 2-3 x's per night. Denies weakness, usual tremor, low back pain. Previous sleep/RLS trials: Ropinirole- which helped but he is no longer taking it but is not sure why. Melatonin- was causing leg cramps, which resolved upon stopping the melatonin. [facility] Medical History (Updated 08/23/24 @ 12:07 by MINA Fox) Vitamin D deficiency Hyperlipidemia Depression History of cancer metastatic to brain History of Helicobacter pylori infection COPD (chronic obstructive pulmonary disease) Hx of cancer of lung Hx of testicular cancer Surgical History History of orchiectomy Hx of removal of cyst Hx of hernia repair Family History Mother Heart disease Father Acute alcohol abuse Social History Household Members: Spouse Alcohol intake: former Patient Tobacco Use Status: Former Tobacco user Substance Use Type: Crack/Cocaine Physical Exam Vital Signs: Last Vital Signs Pulse 96 03/07/25 14:59 BP 90/60 03/07/25 14:59 Pulse Ox 96 03/07/25 14:59 Oxygen Delivery Method Room Air 03/07/25 14:59 BMI result Body Mass Index 21.9 Const General: cooperative and no acute distress Orientation/consciousness: patient oriented x3 HEENT Head: Yes normocephalic Resp Effort & Inspection: normal respiratory effort and able to speak in complete sentences Neuro General: patient oriented x3, gait normal and CN's II-XI intact bilaterally Cognition (Neuro): normal cognition Gait exam (Neuro): Normal gait present Motor exam (neuro): 5/5 motor strength present throughout Psych Appearance: grossly normal Mental Status: mental status grossly normal Speech and movement: Normal speech and movement present Affect: normal affect Attitude: cooperative Thought process: Normal thought process present Assessment & Plan Assessment & Plan (1) Seizure: Code(s): R56.9 - Unspecified convulsions Category: Medical (2) Low serum ferritin level: Code(s): R79.0 - Abnormal level of blood mineral Category: Medical (3) Vitamin D deficiency: Code(s): E55.9 - Vitamin D deficiency, unspecified Category: Medical (4) Sleep difficulties: Code(s): G47.9 - Sleep disorder, unspecified Category: Medical Plan Advised him to f/u with Dr Guerra r/t stopping Farxega For seizure: Continue levetiracetam ER 500 mg tab- 4 tabs daily at bedtime (alternatively he may trial 1 tab in a.m. and 3 tabs at bedtime) ? For fatigue, sleep and RLS s/s: Reviewed interval labs- elevated B12, low norm b12, iron studies WNL Continue vitamin-D supplement Decrease vitamin B12 1000mcg from daily to 3 day per week- -- Increase Gabapentin 100mg cap to 1 cap at 9pm, 10pm, and 11pm (bedtime) or 1 cap at 9pm and 2 caps at 11pm (bedtime) Trial OTC Magnesium or RLS topical creams Add stretching exercises at prior to bedtime Continue Ferrous sulfate 325mg w/ Vit C 500mg po 3 x's week (Mon-Wed-Fri) Pt previously declined HST- will monitor. Previous trials- Melatonin- caused leg cramps. Ropinirole- helped- unclear why it was stopped. For headache: Continue riboflavin 400 mg daily in morning. He has held magnesium 400 mg daily at bedtime order- states tab is too large to swallow, but also worried about taking too many meds ? Written instructions given. Will follow-up upon review of above and patient to follow-up in clinic in 6 months or sooner prn. Medications: Refilled levetiracetam ER 2,000 mg (4 x 500 mg) PO Q24H 120 tabs 11RF 30 days gabapentin 100 - 300 mg (1 - 3 x 100 mg) PO BEDTIME 90 caps 6RF 30 days ascorbate calcium (vitamin C) 500 mg orally 3 x's per week (Thu-Thu-Thu); 12 tabs 6RF 28 days ferrous sulfate 325 mg orally 3 x's per week (Thu-Thu-Thu); take w/ vit C 12 tabs 6RF 28 days Coding Level of Care Code Est Pt Level 4 (85354) Diagnoses Seizure R56.9 Low serum ferritin level R79.0 Vitamin D deficiency E55.9 Sleep difficulties G47.9
--- OUTSIDE RECORDS SUMMARY | 2025-03-07 18:20 | XMS_ITS | Clinical Summary ---
Author Organization [facility] Address [address] [place] [address] Care Team Providers Care Deputy County Attorney Name Role Phone Janet Chaudhry MD Primary Care Provider [phone] Allergies Active Allergy Reactions Criticality Noted Date [...] age to complete this topic Care Teams Deputy County Attorney Relationship Specialty Start Date End Date Janet Chaudhry MD 175 [facility] 200 [place] [phone] PCP - General Internal Medicine 05/12/16
--- OUTSIDE RECORDS SUMMARY | 2025-03-07 18:21 | XMS_ITS | Encounter Summary ---
Author Organization [facility] Address [address] [place] [address] Care Team Providers Care Heel Former Name Role Phone Janet Chaudhry MD Primary Care Provider [phone] Encounter Details Date Type Department Care Team (Late Contact Info) Description 02/07/2025 Lab Requisition [facility] - Main Lab 299 [facility] [place] [address] Robi Hinojosa PA [address] [place] [address] Elevated prostate specific antigen (PSA); Benign prostatic [...] Description 03/13/2025 8:40 AM EST Office Visit [facility] - [address] [facility] [address] [place] [address] Luba Duenas NP [address] [place] [address] [address] [place] [address] 03/17/2025 12:00 PM EST Office Visit Internal Medicine - [place] 175 [facility] 200 [place] [address] Janet Chaudhry MD [address] [place] [address] 03/29/2025 1:30 PM EST Ancillary Procedure [facility] - [facility] 101 300 [facility] 101 [place] [phone] 04/18/2025 9:45 AM EST Office Visit Pulmonology - [place] 175 [facility] 200 [place] [address] Aleksey Rtuh MD 230 [place] [phone] 06/14/2025 9:30 AM EST Office Visit [facility] Hematology Oncology [address] [place] [phone] Katelyn Flynn MD [address] [place] [address] documented as of this encounter Procedures Procedure Name Priority Date/Time Associated Diagnosis Comments PROSTATE SPECIFIC ANTIGEN DIAGNOSTIC Routine 02/07/2025 11:13 AM EDT Elevated prostate specific antigen (PSA) Benign prostatic hyperplasia with lower urinary tract symptoms documented in this encounter Results * Prostate specific antigen diagnostic (02/07/2025 11:13 AM EDT) PSA 1.67 0.00 - 4.00 ng/mL LAB CHEMISTRY METHOD 02/07/2025 3:49 PM EDT [facility] Blood Venous blood specimen / Unknown 02/07/2025 11:13 AM EDT 02/07/2025 3:04 PM EDT Narrative [facility] - 02/07/2025 3:49 PM EDT The Siemens Advia Centaur Chemiluminescent Immunoassay is used. Results obtained with different assay methods or kits cannot be used interchangeably. Results cannot be interpreted as absolute evidence of the presence or absence of malignant disease. us Robi ALVARADO LAB BLOOD ORDERABLES Final Resul t [facility] [address] [place] [address], documented in this encounter Visit Diagnoses Diagnosis Elevated prostate specific antigen (PSA) Benign prostatic hyperplasia with lower urinary tract symptoms documented in this encounter Care Teams Heel Former Relationship Specialty Start Date End Date Janet Chaudhry MD 175 [facility] 200 [place] [address] PCP - General Internal Medicine 02/15/18 documented as of this encounter
--- OUTSIDE RECORDS SUMMARY | 2025-03-07 18:21 | XMS_ITS | Clinical Summary ---
Author Organization [facility] Address [address] [place] [address] Phone Care Team Providers Care Postal Service Sectional Center Manager Name Role Phone Janet Chaudhry MD Primary Care Provider [phone] Allergies Active Allergy Reactions Criticality Noted Date [...] Max Daily Amount: 15 mg 24 tablet 02/24/20 Active oxyCODONE (ROXICODONE) 5 mg immediate release tabletIndications: Restless legs Take 1 tablet (5 mg total) by mouth every 8 (eight) hours if needed for severe pain. Max Daily Amount: 15 mg 24 tablet 01/19/20 025 Discontin ued(Reord er) dapagliflozin propanediol (FARXIGA) 10 mg tablet Take 1 tablet (10 mg total) by mouth 1 (one) time each day. 90 each 3 01/28/20 025 Discontin ued(Reord er) dapagliflozin propanediol (FARXIGA) 10 mg tablet Take 1 tablet (10 mg total) by mouth 1 (one) time each day. 30 each 02/08/20 025 Discontin ued(Side effects) Active Problems Problem Noted Date Diagnosed Date Claudication ([facility] V24) 01/27/2025 Assessment & Plan (01/27/2025 11:12 [...] with TARUN; Future History of cocaine abuse ([facility] V24, CMS/[facility] V 28) 01/27/2025 Dyspnea on exertion 01/27/2025 [...] for HIRAM and will follow-up with his bankruptcy manager further regarding this. Palpitations 06/25/2023 Overview (03/28/2024): [...] He had a cardiac cath completed in 2015 which showed only minimal luminal irregularities; as [...] pounds in one week. Tachycardia 11/04/2021 Seizure ([facility] V24, [facility] V28) 02/23/2021 Mixed hyperlipidemia 05/22/2020 Assessment & [...] once these results are reviewed. Pulmonary emphysema ([facility] V24, [facility] V28) 0 05/22/2020 Overview (03/28/2024): Last Assessment & Plan: No significant shortness of breath at rest or with exertion though he does have faint end expiratory wheezes; he does admit that these are worse at times. He will continue to follow-up with pulmonology as recommended. Vitamin D deficiency 11/20/2017 Chronic obstructive pulmonar y disease (COPD) ([facility] V24, [facility] V28) 11/11/2017 Insomnia 11/05/2017 Ejection fraction < 50% 08/21/2017 Overview (03/28/2024): Last Assessment & Plan: Appears euvolemic, has no ischemic or heart failure symptoms. I will update an echocardiogram. Internal and external prolapsed hemorrhoids 11/2017 Depression 04/14/2017 Colon polyps 03/27/2017 Atrophic gastritis 06/26/2016 Erosive esophagitis 06/26/2016 Anxiety about health 06/06/2015 Marijuana use 06/06/2015 Encounters Date Type Department Care Team Description 02/28/2025 10:15 AM EST Lab Draw Station - [address] [place] [address] Pure hypercholesterolemia (Primary Dx) 02/27/[address] [facility] - [facility] 154 300 [facility] [address] [place] [phone] Jr Guerra MD 02/17/2025 Results Follow-Up Internal Medicine - [place] 175 [facility] 200 [place] [phone] Janet Chaudhry MD 02/16/2025 8:50 AM EST - 02/16/2025 11:59 PM EST Hospital Encounter [facility] Xray [address] [place] [phone] Evelyn Roach, [place] LIFT OPERATOR Dysphagia, unspecified type; Vomiting without nausea, unspecified vomiting type Discharge Disposition: Home or Self Care 02/07/2025 Lab Requisition [facility] - Main Lab 299 [facility] [place] [address] Robi Hinojosa PA Elevated prostate specific antigen (PSA); Benign prostatic hyperplasia with lower urinary tract symptoms 01/27/2025 9:40 AM EDT Office Visit [facility] - [facility] [address] 300 [facility] 102 [place] [phone] Luba Duenas NP Cardiomyopathy, unspecified type (CMS/HCC V24, CMS/HCC V28) (Primary Dx); Chronic systolic congestive heart failure (CMS/HCC V24, CMS/HCC V28); Dyspnea on exertion; Mixed hyperlipidemia; Claudication (CMS/HCC V24); Nocturnal leg cramps 01/27/[address] [facility] - [facility] [address] 300 [facility] 154 [place] [phone] Jr Guerra MD 01/12/2025 9:45 AM EDT Office Visit Pulmonology - [place] 175 [facility] 200 [place] [phone] Aleksey Ruth MD Centrilobular emphysema (CMS/HCC V24, CMS/HCC V28) (Primary Dx); Squamous cell carcinoma of right lung (CMS/HCC V24, CMS/HCC V28) 01/05/[address] [facility] - [address] [place] [address] Jr Guerra MD 12/26/[address] [facility] - [facility] [address] [facility] [address] [place] [phone] Jr Guerra MD 12/22/[address] [facility] [address] [place] [phone] Amelia Escobar MA 12/21/2024 11:00 AM EDT Ancillary Procedure Pulmonology - [place] [address] [place] [phone] Centrilobular emphysema ([facility] V24, [facility] V28); Small cell lung cancer in adult ([facility] V24, [facility] V28) from Last 3 Months Immunizations Immunization Administration [...] astritis Chronic obstructive pulmonar y disease (COPD) ([facility] V24, [facility] V28) 11/11/2017 DX:Chronic obstructi ve pulmonary disease (COPD) ([facility]) Colon polyps 03/27/2017 DX:Colon polyps Depression 04/14/2017 [...] deficiency 11/20/2017 DX:Vitamin D deficiency Lung cancer ([facility] V24, CM S/[facility] V28) DX:Lung cancer (HCC) Brain cancer ([facility] V24, C MS/[facility] V28) DX:Brain cancer (HCC) Hypertension DX:Hypertension CHF (congestive heart failur e) ([facility] V24, [facility] V28) DX:CHF (congestive heart fa ilure) (HCC) Brain metastases 10/04/2016 DX:Brain metast ases Chronic obstructive pulmonar y disease (COPD) ([facility] V24, [facility] V28) 11/11/2017 Seizure ([facility] V24, [facility] V28) 02/23/2021 Family History Medical History Relation [...] 03/13/2025 8:40 AM EST Office Visit [facility] - [facility] 102 300 [facility] 102 [place] [address] Luba Duenas NP [address] [place] [address] [address] [place] [address] 03/17/2025 12:00 PM EST Office Visit Internal Medicine - [place] 175 [facility] 200 [place] [phone] Janet Chaudhry MD 230 [place] [phone] 03/29/2025 1:30 PM EST Ancillary Procedure [facility] - [facility] 101 300 [facility] 101 [place] [address] 04/18/2025 9:45 AM EST Office Visit Pulmonology - [place] 175 [facility] 200 [place] [phone] Aleksey Ruth MD 230 [place] [phone] 06/14/2025 9:30 AM EST Office Visit [facility] Hematology Oncology [address] [place] [phone] Katelyn Flynn MD [address] [place] [address] Health Maintenance Due Date Last Done Comments [...] Additional history exists Cholesterol Screening (Lipid Panel) 02/28/2030 02/28/2025, 11/24/2024, 07/14/2024, Additional history exists DTaP,Tdap,and Td Vaccines (2 [...] Procedure Name Priority Date/Time Associated Diagnosis Comments LIPID PANEL WITH REFLEX TO DIRECT LDL Routine 02/28/2025 10:19 AM EST Pure hypercholesterolemia EXTERNAL CLINICAL LAB 02/20/2025 EXTERNAL CLINICAL LAB 02/20/2025 XR BARIUM SWALLOW WITH VIDEO AND SPEECH [...] EDT Dilated cardiomyopathy (CMS/HCC V24, CMS/HCC V28) COLONOSCOPY Routine 07/21/2024 11:06 AM EDT Tubular adenoma from Last 3 Months or Most Recently Relevant to Health Maintenance Results * Lipid panel with reflex to direct LDL (02/28/2025 10:19 AM EST) Cholesterol 141 0 - 200 mg/dL 02/28/2025 2:43 PM EST [facility] Triglycerides 97 0 - 150 mg/dL 02/28/2025 2:43 PM EST [facility] HDL 66 >=40 mg/dL 02/28/2025 2:43 PM EST [facility] LDL Calculated 56 0 - 100 mg/dL 02/28/2025 2:43 PM EST [facility] Comment:Estimated LDL Calcul ated using equation: Total cholesterol - HDL cholesterol - (Triglycerides/5) VLDL Cholesterol Perfecto 19.4 mg/dL 02/28/2025 2:43 PM EST [facility] Non HDL Chol. (LDL+VLDL) 75 <145 mg/dL 02/28/2025 2:43 PM EST [facility] Chol/HDL Ratio 2.1 0.0 - 4.4 02/28/2025 2:43 PM EST [facility] Blood Venous blood specimen / Unknown Venipuncture / Unknown 02/28/2025 10:19 AM EST 02/28/2025 10:19 AM EST Jr Guerra MD LAB BLOOD ORDERABLES Final Resu lt [facility] [address] [place] [address], [place] [phone] * External clinical lab (02/20/2025) Only the most recent of2 resultswithin the time period is included. us Provider [facility] LAB BLOOD ORDERABLES Fin al Result * XR Barium Swallow with Video and [...] Signed Date: 02/17/2025 17:16 ET Workstation ID: [id number] Transcribed By: Self Edit Transcribed Date: 02/16/2025 11:42 ET Resident/PA/BREWERY REPRESENTATIVE: Arely Lamb Narrative 02/17/2025 5:16 PM EST STUDY: Modified barium swallow study COMPARISON: Modified barium swallow 2015 HISTORY: Dysphagia. Hx mets to brain, lung [...] barium swallow study COMPARISON: Modified barium swallow 2015 HISTORY: Dysphagia. Hx mets to brain, lung [...] Signed Date: 02/17/2025 17:16 ET Workstation ID: [id number] Transcribed By: Self Edit Transcribed Date: 02/16/2025 11:42 ET Resident/PA/BREWERY REPRESENTATIVE: Arely Lamb Janet Chaudhry MD IMG FLUOROSCOPY PROCEDURES Fin al Result * Prostate specific antigen diagnostic (02/07/2025 11:13 AM EDT) PSA 1.67 0.00 - 4.00 ng/mL LAB CHEMISTRY METHOD 02/07/2025 3:49 PM EDT [facility] Blood Venous blood specimen / Unknown 02/07/2025 11:13 AM EDT 02/07/2025 3:04 PM EDT Narrative [facility] - 02/07/2025 3:49 PM EDT The Siemens Advia Centaur Chemiluminescent Immunoassay is used. Results obtained with different assay methods or kits cannot be used interchangeably. Results cannot be interpreted as absolute evidence of the presence or absence of malignant disease. Robi ALVARADO LAB BLOOD ORDERABLES Final Resul t [facility] [address] [place] [address], [place] [phone] * Pulmonary function testing: Carbon Monoxide Diffusing [...] Anatomical Region Laterality Modality Cardiac Diagnost ic Rita Provider [facility] SOFYA ROWE Final Result * Basic metabolic panel (12/14/2024 3:39 PM EDT) Sodium 137 133 - 145 mmol/L LAB CHEMISTRY METHOD 12/14/2024 5:25 PM [facility] Potassium 3.9 3.5 - 5.5 mmol/L LAB CHEMISTRY METHOD 12/14/2024 5:25 PM [facility] Chloride 106 96 - 110 mmol/L LAB CHEMISTRY METHOD 12/14/2024 5:25 PM [facility] CO2 26 21 - 32 mmol/L LAB CHEMISTRY METHOD 12/14/2024 5:25 PM [facility] Anion Gap 5 3 - 11 LAB CHEMISTRY METHOD 12/14/2024 5:25 PM [facility] Glucose 89 70 - 100 mg/dL LAB CHEMISTRY METHOD 12/14/2024 5:25 PM [facility] BUN 17 5 - 25 mg/dL LAB CHEMISTRY METHOD 12/14/2024 5:25 PM [facility] Creatinine 0.84 0.70 - 1.30 mg/dL LAB CHEMISTRY METHOD 12/14/2024 5:25 PM [facility] eGFR 99 >=60 mL/min/1. 73m2 LAB CHEMISTRY METHOD 12/14/2024 5:25 PM [facility] Comment:Calculation based on the Chronic Kidney Disease Epidemiology Collaboration (CKD-EPI) equation refit without adjustment for race. BUN/Creatinine Ratio 20.2 LAB CHEMISTRY METHOD 12/14/2024 5:25 PM [facility] Calcium 9.1 8.5 - 10.5 mg/dL LAB CHEMISTRY METHOD 12/14/2024 5:25 PM [facility] Blood Venous blood specimen / Unknown Venipuncture / Unknown 12/14/2024 3:39 PM EDT 12/14/2024 4:53 PM EDT us Jr Guerra MD LAB BLOOD ORDERABLES Final Resu lt [facility] [address] [place] [address], * COLONOSCOPY Anesthesia - MAC; [facility] ENDOSCOPY (07/21/2024 11:06 AM EDT) Anatomical Region [...] for surveillance. Narrative 07/21/2024 11:06 AM EDT [facility] GI Patient Name: Chet Tao Procedure Date: [...] retroflexion views. Procedure Code(s): --- Professional --- 15612, Colonoscopy, flexible; with removal of tumor(s), polyp(s), or other lesion(s) by snare technique Diagnosis Code(s): --- Professional --- D12.5, Benign neoplasm of sigmoid colon Z86.010, Personal history of colonic polyps D12.4, Benign neoplasm of descending colon D12.0, Benign neoplasm of cecum CPT copyright 2020 [employer]. All rights reserved. The codes documented in this report are preliminary and upon motor power connector review may be revised to meet current compliance requirements. Pradeep Somers MD 07/21/2024 11:06:28 AM This report has been signed electronically.Pradeep Somers MD Number of Addenda: 0 Note Initiated On: 07/21/2024 10:37 AM Scope In: Scope Out: Endoscopy Department at [facility] - [address] [place] [phone] Procedure Note Pradeep Somers MD - 07/21/2024 [facility] GI Patient Name: Chet Tao Procedure Date: 07/21/2024 10:37 AM Date of : 1965 Age: 59 Room: ROOM 15 Gender: Male Note Status: Finalized Attending MD: Pradeep Somers MD, Procedure Date No Time: 07/21/2024 Procedure: Colonoscopy Indications: High risk colon cancer surveillance: Personalhistory of colonic polyps Providers: Pradeep oSmers MD Referring MD: Kash Cantor MD Medicines: [...] retroflexion views. Procedure Code(s): --- Professional --- 46593, Colonoscopy, flexible; with removal of tumor(s), polyp(s), or other lesion(s) by snare technique Diagnosis Code(s): --- Professional --- D12.5, Benign neoplasm of sigmoid colon Z86.010, Personal history of colonic polyps D12.4, Benign neoplasm of descending colon D12.0, Benign neoplasm of cecum CPT copyright 202 [employer]. All rights reserved. The codes documented in this report are preliminary and upon motor power connector reviewmay be revised to meet current compliance requirements. Pradeep Somers MD 07/21/2024 11:06:28 AM This report has been signed electronically.Pradeep Somers MD Number of Addenda: 0 Note Initiated On: 07/21/2024 10:37 AM Scope In: Scope Out: Endoscopy Department at [facility] - [address] [place] [phone] IMPRESSION: - One 11 mm polyp in [...] Subscriber Plan / Payer (Ef fective 2023-Present) Name:ISABELL, CHET Relation to Subscriber:Self Name:Chet Tao Jr. Payer ID:[id number] Group ID:[id number] Type:Not on file Address: [place] [address] [place] [address] Care Teams Postal Service Sectional Center Manager Relationship Specialty Start Date End Date Janet Chaudhry MD [address] [place] [address] 200 [place] [address] PCP - General Internal Medicine 02/15/18
--- OUTSIDE RECORDS SUMMARY | 2025-03-07 18:21 | XMS_ITS | Encounter Summary ---
Author Organization [facility] Address [address] [place] [address] Care Team Providers Care Treating Engineer Name Role Phone Janet Chaudhry MD Primary Care Provider Encounter Details Date Type Department Care Team (Late st Contact Info) Description 02/17/2025 Results Follow-Up Internal Medicine - [place] [address] [place] [phone] Janet Chaudhry MD [address] [place] [address] Social History Tobacco Use Types Packs/Day Years [...] on file documented as of this encounter Progress Notes * Neva Nichols - 02/27/2025 1:14 PM EST Pt informed. * Latrice Elmore - 02/22/2025 11:09 AM EST Patient is calling back [phone] documented in this encounter Plan of Treatment Upcoming Encounters Date Type Department Care Team (Late st Contact Info) Description 03/13/2025 8:40 AM EST Office Visit [facility] - [facility] 102 300 [facility] 102 [place] [address] Luba Duenas NP [address] [place] [address] [address] [place] [address] 03/17/2025 12:00 PM EST Office Visit Internal Medicine - [place] 175 [facility] 200 [place] [address] Janet Chaudhry MD [address] [place] [address] 03/29/2025 1:30 PM EST Ancillary Procedure [facility] - [facility] 101 300 [facility] 101 [place] [phone] 04/18/2025 9:45 AM EST Office Visit Pulmonology - [place] 175 [facility] 200 [place] [address] Aleksey Ruth MD [address] [place] [phone] 06/14/2025 9:30 AM EST Office Visit [facility] Hematology Oncology [address] [place] [phone] Katelyn Flynn MD [address] [place] [address] documented as of this encounter Visit Diagnoses Not on filedocumented in this encounter Care Teams Treating Engineer Relationship Specialty Start Date End Date Janet Chaudhry MD 175 [facility] 200 [place] [address] PCP - General Internal Medicine 02/15/18 documented as of this encounter
--- OUTSIDE RECORDS SUMMARY | 2025-03-07 18:21 | XMS_ITS | Encounter Summary ---
Author Organization [facility] Address [address] [place] [address] Care Team Providers Care Insurance Account Specialist Name Role Phone Janet Chaudhry MD Primary Care Provider [phone] Encounter Details Date Type Department Care Team (Late Contact Info) Description 07/19/2024 Telephone Internal Medicine - [place] 175 [facility] 200 [place] [phone] Janet Chaudhry MD [address] [place] [phone] Social History Tobacco Use Types Packs/Day Years [...] Description 03/13/2025 8:40 AM EST Office Visit [facility] - [facility] 102 300 [facility] 102 [place] [address] Luba Duenas NP [place] [address] 03/17/2025 12:00 PM EST Office Visit Internal Medicine - [place] 175 [facility] 200 [place] [phone] Janet Chaudhry MD 230 [place] [phone] 03/29/2025 1:30 PM EST Ancillary Procedure [facility] - [facility] 101 300 [facility] 101 [place] [phone] 04/18/2025 9:45 AM EST Office Visit Pulmonology - [place] [address] [phone] Aleksey Ruth MD 230 [place] [phone] 06/14/2025 9:30 AM EST Office Visit [facility] Hematology Oncology [address] [place] [phone] Katelyn Flynn MD [address] [place] [address] documented as of this encounter Visit Diagnoses Not on filedocumented in this encounter Care Teams Insurance Account Specialist Relationship Specialty Start Date End Date Janet Chaudhry MD [address] [phone] PCP - General Internal Medicine 02/15/18 documented as of this encounter
== END 2025-03-07 15:50 | disposition home or self-care (01) ==
LOC: HO.HSMS 14:28
PROVIDERS: PCP Internal Medicine; Visit Provider Nurse Practitioner Family
DX: R56.9 Unspecified convulsions (principal); R79.0 Abnormal level of blood mineral; E55.9 Vitamin D deficiency, unspecified; G47.9 Sleep disorder, unspecified
CPT/HCPCS: 99214

== ENCOUNTER → 2025-03-07 14:27 | Outpatient (BNVA) | payer OTHER, SELFPAY | PROVIDERS: PCP Internal Medicine; Visit Provider Nurse Practitioner Family | DX: R56.9 Unspecified convulsions (principal); E55.9 Vitamin D deficiency, unspecified; G47.9 Sleep disorder, unspecified; R79.0 Abnormal level of blood mineral; Z79.899 Other long term (current) drug therapy | CPT/HCPCS: 99212 ==